=== PATIENT | female | born 1950 | race Caucasian/White ===

== ENCOUNTER 2020-11-03 02:54 | Emergency (ER) | payer MEDICARE, MEDICAID, SELFPAY ==
[2020-11-03] VITALS (17 sets, daily range): BP systolic 128–168; BP diastolic 58–86; PULSE 66–83; RESP 16–20; TEMP 36.6–36.7; O2SAT 96–100; BMI 21.4
--- NOTE | ~2020-11-03 | CT_ITS ---
EXAMINATION: CT HEAD WITHOUT CONTRAST CLINICAL INFORMATION: Dizziness COMPARISON: None TECHNIQUE: Contiguous axial imaging was performed from the skull base to vertex without intravenous administration of contrast. This CT examination was performed using dose optimization techniques as appropriate, variously including the following: *Automated exposure control *Adjustment of mA and/or kV according to patient size (this includes techniques or standardized protocols for targeted exams where dose is matched to indication/reason for exam; i.e. extremities or head) *Use of iterative reconstruction technique DLP: 569 mGy-cm FINDINGS: There is no evidence of an extra-axial collection. There is no evidence of intra-axial or extra-axial hemorrhage. Ventricles and extra-axial CSF spaces are appropriate for age. There is mild nonspecific periventricular white matter disease. There is question of a left basal ganglia lacunar infarct. No mass, mass effect or acute infarct is seen. The osseous structures and soft tissues are normal. There is a small polyp or cyst in the right maxillary sinus. The mastoid air cells and visualized portions of the paranasal sinuses are otherwise clear. CT/CT head/brain wo con IMPRESSION: No acute findings. Mild nonspecific periventricular white matter disease and question left basal ganglia lacunar infarct.
--- NOTE | ~2020-11-03 | MR_ITS ---
EXAMINATION: BRAIN MRI WITHOUT CONTRAST CLINICAL INFORMATION: Vertigo and dizziness. Posterior circulation stroke. COMPARISON: CT angiogram of the head and neck 11/03/2020. TECHNIQUE: Multiplanar MR imaging of the brain was performed without contrast. FINDINGS: Scattered nonspecific foci of T2 FLAIR signal hyperintensity are visualized within the periventricular white matter. No acute territorial infarct. No pathological magnetic susceptibility artifact. Intracranial vascular flow voids are maintained. There is no intracranial mass effect or midline shift. Lateral and third ventricles are normal. No hydrocephalus. Midline structures including the cervicomedullary junction are normal. No acute bone marrow signal changes. There is no mastoid middle ear effusion. Mild mucosal thickening within ethmoid air cells. A small retention cysts within the right maxillary sinus is noted. Globes and orbits are symmetric. MR/MR head/brain wo con IMPRESSION: There are scattered chronic small vessel ischemic changes within the periventricular white matter. Otherwise unremarkable examination. No evidence of acute territorial infarct or hemorrhage.
--- NOTE | ~2020-11-03 | CT_ITS ---
EXAMINATION: CT angio head neck CLINICAL INFORMATION: Dizziness. Unable to walk. COMPARISON: CT scan of the head 11/03/2020. TECHNIQUE: Inventory Administrator images were obtained. A CT angiogram of the head and neck was performed in the arterial phase after the intravenous administration of 70 mL Omnipaque 350. Delayed postcontrast images of the head were also obtained. MIP reconstructions were generated in multiple orientations at the acquisition workstation. Multiple three-dimensional surface rendered images and maximum intensity projection images were generated on a dedicated 3-D lab workstation. Arterial stenoses are measured in accordance with NASCET criteria or similar method if applicable. This CT examination was performed using dose optimization techniques as appropriate, including one or more of the following: Automated exposure control, iterative reconstruction, and adjustment of technique factors (mA and/or kVp) according to patient size (this includes techniques or standardized protocols for targeted exams where dose is matched to indication/reason for exam). Total exam dose-length product 1386 mGy-cm FINDINGS: Head: Postcontrast images reveal no abnormal intracranial mass or enhancement. There is no intracranial mass effect or midline shift. Lateral and third ventricles are normal. No hydrocephalus. Vance-white matter differentiation is preserved and there is no evidence of acute territorial infarct. The calvarium and skull base are intact. Mastoid air cells and middle ear cavities are well aerated. No active paranasal sinus disease. CT angiogram neck: The aortic arch apex is normal. Origins of the major aortic branches are widely patent. Common carotid arteries and the carotid bifurcations are patent. No stenosis of the extracranial internal carotid arteries. The cervical segments of the vertebral arteries as well as their origins are patent. CT angiogram head: Intracranial internal carotid arteries are patent. The intradural vertebral artery segments and basilar artery are patent. Anterior, middle, and posterior cerebral artery complexes are normal. No intracranial large vessel occlusion. The timing of contrast injection provides adequate opacification of the dural venous sinuses which are patent. Other: Soft tissues of the neck including the thyroid gland are normal. Visualized lung apices are clear. CT/CT angio head neck IMPRESSION: Unremarkable CT angiogram of the head and neck. Specifically no stenosis of the cervical carotid or vertebral arteries. No intracranial or vessel occlusion. Postcontrast images reveal no abnormal intracranial mass or enhancement.
--- NOTE | 2020-11-03 03:13 | ECG_ITS ---
Test Reason : DIZZINESS Blood Pressure : / mmHG Vent. Rate : 064 BPM Atrial Rate : 064 BPM P-R Int : 138 ms QRS Dur : 082 ms QT Int : 438 ms P-R-T Axes : 060 023 -10 degrees QTc Int : 451 ms Normal sinus rhythm ST & T wave abnormality, consider anterior ischemia Abnormal ECG When compared with ECG of 01-OCT-2014 07:46, No significant change was found Referred By: Tia Cooney Electronically Signed By:JUANITA HILL
[2020-11-03 03:53] LABS: Basophils Percent Auto 0.3 % (0-2); Eosinophils Percent Auto 0.3 % (0-4); Hematocrit 36.4 % (37-47); Hemoglobin 11.8 g/dl (12.0-16.0); Imm Gran Abs Auto 0.03 X10*3/uL (0.00-0.03); Imm Gran Pct Auto 0.3 % (0.0-0.4); Lymphocytes Absolute Auto 2.4 X10*3/uL (1.2-4.9); Lymphocytes Percent Auto 24.3 % (20-40); MANUAL DIFF FLAG NO; Mean Corpuscular HGB Conc 32.4 g/dl (31.0-35.0); Mean Corpuscular Hemoglobin 27.9 pg (27.0-33.0); Mean Corpuscular Volume 86.1 fL (80-98); Mean Platelet Volume 8.5 fL (9.4-12.3); Monocytes Absolute Auto 0.3 X10*3/uL (0.1-1.2); Monocytes Percent Auto 3.3 % (2-11); Neutrophils Percent Auto 71.5 % (45-73); Platelet Count 241 X10*3/uL (160-400); Red Blood Count 4.23 X10*6/uL (4.20-5.50); Red Cell Distribution Width 13.7 % (11.0-16.0); White Blood Count 9.8 X10*3/uL (4.8-10.8)
[2020-11-03 04:02] LABS: Prothrombin Time 11.5 SEC (10.8-13.0)
--- NOTE | 2020-11-03 04:17 | ED_ITS ---
HPI - Dizziness General Chief Complaint: Dizziness Stated Complaint: Dizziness Time Seen by Provider: 11/03/20 03:12 Source: patient Mode of arrival: EMS History of Present Illness HPI Narrative: 70-year-old female with history of depression presents with onset of mild dizziness earlier yesterday morning, however she still decided to go to the beach because she began to feel better. She then states that this evening she began feeling dizzy and states that change of position makes it worse and that she feels like the room is spinning. This is not been associated with any fever, chills, headache, cough, shortness breath/chest pain/palpitations, nausea, diarrhea, urinary pain/burning/frequency. Patient states that she has had this symptom before when she was much younger. Related Data Previous Rx's Medication Instructions Recorded cephalexin 500 mg PO Q12H 7 Days #14 cap 11/03/20 Allergies Allergy/AdvReac Type Severity Reaction Status Date / Time No Known Allergies Allergy Unverified 11/03/20 03:11 [No Known Allergies*] Review of Systems Review of Systems: Pertinent positives and negatives as stated in HPI 10 point review of systems is otherwise negative. PMFSH Past Medical History Source: nursing notes reviewed Medical History Hyperlipemia Hypertension Vertigo Social History Social History Advance Directives: No Advance Directives Information Provided: No Physical Exam Vital Signs: Vital Signs: Last Vital Signs Temp 97.8 F 11/03/20 03:05 Pulse 82 11/03/20 04:28 Resp 16 11/03/20 03:05 BP 149/58 H 11/03/20 04:28 Pulse Ox 98 11/03/20 03:05 Body Mass Index 21.4 VITAL SIGNS: Reviewed. GENERAL: Well developed, well nourished, in no acute distress. HEAD: Normocephalic/atraumatic EYES: PERRLA, EOMI OROPHARYNX: no oral lesions noted, posterior pharynx clear, dry mucosa NECK: Supple, no adenopathy LUNGS: Normal breath sounds. No adventitious sounds or accessory muscle use. SpO2<98> CARDIOVASCULAR: Regular rate and rhythm without noted murmurs, no JVD or lower extremity edema. ABDOMEN: Soft, non-tender, non-distended with bowel sounds. SKIN: Inspection of the skin reveals no rashes, but there is noted erythema to the right side of her neck as well as her forehead consistent with sun exposure NEUROLOGIC: Alert and oriented x 4. Strength and sensation to light touch were grossly intact x 4, no pronator drift, no facial asymmetry, cranial nerves 2-12 are grossly intact. Course Course Course Narrative: 70-year-old female with history and clinical presentation consistent with vertigo suspect that this may be secondary to volume depletion after having spent the day in the sun with likely poor hydration. However, will rule out underlying infectious, anemia, arrhythmia etiologies. 0428: Orthostatics are positive. On review of remaining investigations patient is noted to have a UTI and was treated with initial antibiotics here in the emergency room. She will be discharged with remaining prescription. MDM - Dizziness Lab Data Result diagrams: 11/03/20 03:48 11/03/20 03:48 Labs: Lab Results 11/03/20 11/03/20 11/03/20 Range/Units 03:48 03:48 03:48 WBC 9.8 (4.8-10.8) X10*3/uL RBC 4.23 (4.20-5.50) X10*6/uL Hgb 11.8 L (12.0-16.0) g/dl Hct 36.4 L (37-47) % MCV 86.1 (80-98) fL MCH 27.9 (27.0-33.0) pg MCHC 32.4 (31.0-35.0) g/dl RDW 13.7 (11.0-16.0) % Plt Count 241 (160-400) X10*3/uL MPV 8.5 L (9.4-12.3) fL Immature Gran % (Auto) 0.3 (0.0-0.4) % Neut % (Auto) 71.5 (45-73) % Lymph % (Auto) 24.3 (20-40) % [place] % (Auto) 3.3 (2-11) % Eos % (Auto) 0.3 (0-4) % Baso % (Auto) 0.3 (0-2) % Lymph # (Auto) 2.4 (1.2-4.9) X10*3/uL [place] # (Auto) 0.3 (0.1-1.2) X10*3/uL Eos # (Auto) 0.0 (0.0-0.4) X10*3/uL Baso # (Auto) 0.0 (0.0-0.2) X10*3/uL Abs Immat Gran (auto) 0.03 (0.00-0.03) X10*3/uL Absolute Neuts (auto) 7.0 (2.0-8.3) X10*3/uL Absolute Nucleated RBC 0.000 (0.0-0.012) X10*3/uL Nucleated RBC % (auto) 0.0 (0.0-0.2) /100WBC PT 11.5 (10.8-13.0) SEC INR 1.0 (0.9-1.1) Sodium 144 (135-145) mmol/L Potassium 4.2 (3.3-5.1) mmol/L Chloride 108 (96-108) mmol/L Carbon Dioxide 26 (22-29) mmol/L Anion Gap 14 (12-20) BUN 16 (9-16) mg/dL Creatinine 0.54 (0.5-1.4) mg/dL Estim Creat Clear Calc 82.5 Estimated GFR > 60 Random Glucose 134 H (60-115) mg/dL Calcium 9.2 (8.4-10.2) mg/dL Total Bilirubin 0.4 (0.0-1.0) mg/dL AST 21 (5-31) U/L ALT 16 (0-31) U/L Alkaline Phosphatase 99 (39-117) U/L Troponin I High Sens (<3.5-17.0) ng/L Total Protein 6.9 (6.5-8.0) g/dL Albumin 4.3 (3.5-5.0) g/dL Urine Color Urine Appearance Urine pH (5.0-8.0) Ur Specific [place] (1.005-1.025) Urine Protein (NEG-TRACE) MG/DL Urine Glucose (UA) (NEG) MG/DL Urine Ketones (NEG) MG/DL Urine Blood (NEG) Urine Nitrite (NEG) Ur Leukocyte Esterase (NEG) Urine RBC (0) /HPF Urine WBC (0-4) /HPF Ur Squamous Epith Cells /LPF Urine Bacteria /LPF Urine Mucus /LPF 11/03/20 11/03/20 Range/Units 03:48 05:44 WBC (4.8-10.8) X10*3/uL RBC (4.20-5.50) X10*6/uL Hgb (12.0-16.0) g/dl Hct (37-47) % MCV (80-98) fL MCH (27.0-33.0) pg MCHC (31.0-35.0) g/dl RDW (11.0-16.0) % Plt Count (160-400) X10*3/uL MPV (9.4-12.3) fL Immature Gran % (Auto) (0.0-0.4) % Neut % (Auto) (45-73) % Lymph % (Auto) (20-40) % [place] % (Auto) (2-11) % Eos % (Auto) (0-4) % Baso % (Auto) (0-2) % Lymph # (Auto) (1.2-4.9) X10*3/uL [place] # (Auto) (0.1-1.2) X10*3/uL Eos # (Auto) (0.0-0.4) X10*3/uL Baso # (Auto) (0.0-0.2) X10*3/uL Abs Immat Gran (auto) (0.00-0.03) X10*3/uL Absolute Neuts (auto) (2.0-8.3) X10*3/uL Absolute Nucleated RBC (0.0-0.012) X10*3/uL Nucleated RBC % (auto) (0.0-0.2) /100WBC PT (10.8-13.0) SEC INR (0.9-1.1) Sodium (135-145) mmol/L Potassium (3.3-5.1) mmol/L Chloride (96-108) mmol/L Carbon Dioxide (22-29) mmol/L Anion Gap (12-20) BUN (9-16) mg/dL Creatinine (0.5-1.4) mg/dL Estim Creat Clear Calc Estimated GFR Random Glucose (60-115) mg/dL Calcium (8.4-10.2) mg/dL Total Bilirubin (0.0-1.0) mg/dL AST (5-31) U/L ALT (0-31) U/L Alkaline Phosphatase (39-117) U/L Troponin I High Sens < 3.5 (<3.5-17.0) ng/L Total Protein (6.5-8.0) g/dL Albumin (3.5-5.0) g/dL Urine Color STRAW Urine Appearance CLEAR Urine pH 6.0 (5.0-8.0) Ur Specific [place] <= 1.005 (1.005-1.025) Urine Protein NEG (NEG-TRACE) MG/DL Urine Glucose (UA) NEG (NEG) MG/DL Urine Ketones NEG (NEG) MG/DL Urine Blood TRACE (NEG) Urine Nitrite NEG (NEG) Ur Leukocyte Esterase TRACE H (NEG) Urine RBC 0-2 (0) /HPF Urine WBC 0-2 (0-4) /HPF Ur Squamous Epith Cells TRACE /LPF Urine Bacteria TRACE /LPF Urine Mucus TRACE /LPF ECG Data Attestation: I personally reviewed and interpreted this ECG as follows: Prior ECG tracings: available for review (10/01/2014 no acute changes on comparison (T-wave inversions of V2/V3/V4 are consistent)) Interpretation: Normal sinus rhythm, HR-64, no evidence of acute ischemia, DE/QRS/QTC are within normal limits. Discharge Plan Discharge Clinical Impression: Dizziness, Acute UTI, Dehydration Patient Disposition: Home, Self-Care Instructions: Dehydration (ED), Dizziness (ED), Urinary Tract Infection in Older Adults (ED) Additional Instructions: 1. Resume all home medications as prescribed. 2. Increase fluid hydration especially with water. 3. Complete the entire course of antibiotics and follow-up with your primary care provider in the next 2-3 days for re-evaluation. Return to the ER for any worsening of your symptoms. Prescriptions: New cephalexin 500 mg capsule 500 mg PO Q12H 7 Days Qty: 14 RF: 0 Referrals: Physician,Unknown [Primary Care Provider] - 2 days
[2020-11-03 04:18] LABS: Alanine Aminotransferase 16 U/L (0-31); Albumin Level 4.3 g/dL (3.5-5.0); Alkaline Phosphatase 99 U/L (39-117); Anion Gap 14 (12-20); Aspartate Amino Transferase 21 U/L (5-31); Bilirubin Total 0.4 mg/dL (0.0-1.0); Blood Urea Nitrogen 16 mg/dL (9-16); Calcium 9.2 mg/dL (8.4-10.2); Carbon Dioxide 26 mmol/L (22-29); Chloride 108 mmol/L (96-108); Creatinine Clr Calc Pharmacy 82.5; Estimated Glomerular Filt Rate > 60; Glucose Random 134 mg/dL (60-115); Potassium 4.2 mmol/L (3.3-5.1); Sodium 144 mmol/L (135-145); Total Protein 6.9 g/dL (6.5-8.0)
[2020-11-03 04:42] LABS: Troponin-I High Sensitivity < 3.5 ng/L (<3.5-17.0)
[2020-11-03] MEDS: Meclizine HCl 12.5 MG TABLET PO (04:49)
[2020-11-03] MEDS: 0.9 % Sodium Chloride 2,000 ML 999 ML IV (04:52)
[2020-11-03 06:00] LABS: Glucose Urine UA NEG (NEG); Leukocyte Esterase Urine TRACE (NEG); Nitrite Urine NEG (NEG); Specific Gravity - Urine <= 1.005 (1.005-1.025); UACC Culture Trigger YES; Urine Blood TRACE (NEG); Urine Ketones NEG (NEG); Urine Protein NEG (NEG-TRACE)
[2020-11-03 06:01] LABS: Appearance Urine CLEAR; Color Urine STRAW
[2020-11-03 06:28] LABS: Bacteria Urine TRACE /LPF; Mucus Urine TRACE /LPF; RBC Urine 0-2 /HPF (0); Squamous Epithelial Cell Urine TRACE /LPF; WBC Urine 0-2 /HPF (0-4)
[2020-11-03] MEDS: cefTRIAXone sodium 1 GM in 0.9 % Sodium Chloride 50 ML IV (06:30)
--- NOTE | 2020-11-03 06:54 | PC.NURSE ---
pt medicated as per emar. pt attempted to get oob and still is dizzy and refusing to stand up. VS obtained. Report given to on coming nurse.
--- NOTE | 2020-11-03 07:19 | PC.NURSE ---
report taken from Brook MORA. pt in bed resting quietly. Denies pain at this time, reports the dizziness is getting better.
--- NOTE | 2020-11-03 07:28 | PC.NURSE ---
Per MD plan is for pt to have CT scan of brain.
[2020-11-03] MEDS: Meclizine HCl 25 MG TABLET PO (07:39)
--- NOTE | 2020-11-03 08:09 | PC.NURSE ---
Pt ambulated to and back from the bathroom with 2 assist contact guard, pt with occasional unsteadiness noted.
[2020-11-03] MEDS: LORazepam 0.5 MG TABLET PO (08:46)
--- NOTE | 2020-11-03 10:16 | PC.NURSE ---
pt continues to have some dizziness post medication , remains unsteady on her feet.
--- NOTE | 2020-11-03 10:45 | PC.NURSE ---
Pt transferred to cat scan via stretcher for CTA.
[2020-11-03] MEDS: iohexoL 350 MG/ML 100 ML INFUS..BTL IV (11:13)
[2020-11-03 11:30] LABS: COVID-19 Test Negative (Negative); IDNOW Serial# 9DD0AD1C
--- NOTE | 2020-11-03 11:57 | PC.NURSE ---
Pt assisted up to commode, remains unsteady on her feet.
--- NOTE | 2020-11-03 15:33 | MHC.CM.ED ---
Addendum entered by Jessy Ha 11/03/20 16:07: Pt has been offered a bed at [facility] and has accepted. [facility] will have availability on 11/04. ED MD and RN aware: pt understands she will board in the ED until Thursday and then transfer to [facility]. Pt concerned with arranging care givers for her dog - using cellphone to coordinate care. Original Note: Received consult for assessment of d/c needs: Pt presented to ED with vertigo and after a negative workup, had a PT eval that recommended STR. Met with pt to discuss: Pt states she lives with her dog and is independent with care needs. She does have Meals on Wheels through [employer] but does not use adaptive devices or have additional services. She relies on family or friends for transportation. Pt would like to stay in the [place] area at this time for STR - geographical referrals placed: Pt had COVID Vax this spring. Will await accepting facility.
[2020-11-03] MEDS: Atorvastatin Calcium 40 MG TABLET PO (16:39)
[2020-11-03] MEDS: Sertraline HCL 100 MG TABLET PO (16:39)
--- NOTE | 2020-11-03 16:47 | PC.NURSE ---
PT AGREEABLE TO GO TO [facility] FOR REHAB. PT AWARE OF PLAN FOR TRANSFER TOMORROW WHEN BED IS AVAILABLE. PT RESTING IN BED, FAMILY AT BEDSIDE. CONTINUES TO REPORT IMPROVEMENT IN DIZIINESS.
[2020-11-03] MEDS: timoloL maleate 0.5 % Oph Sol 5 ML DRBTL 1 DROP EYE-BOTH (17:28)
--- NOTE | 2020-11-03 19:43 | PC.NURSE ---
Report taken from Melva, percy RN resuming care. Pt found ambulating around room with a steady gait. Pt is CAOx4, speaking full sentences. Pt reports feeling better than last night, states most of her dizziness has subsided. Pt aware of plan to [facility] to [facility] for rehab in the morning. VSS. Pt assisted back into bed into POC. Continue to monitor.
--- NOTE | 2020-11-03 20:49 | PC.NURSE ---
Daughter at bedside inquiring about results and plan of care. Pt requesting PO Tylenol, states I always take Tylenol before bed.
[2020-11-03] MEDS: Acetaminophen 325 MG TABLET 650 MG PO (20:53)
[2020-11-04] VITALS: RESP 16
[2020-11-04 02:00] VITALS: RESP 20
[2020-11-04 04:00] VITALS: RESP 16
[2020-11-04 06:00] VITALS: RESP 16
--- NOTE | 2020-11-04 06:08 | PC.NURSE ---
Pt remains asleep in bed at this time, visible chest rise noted. Pt sleeping throughout the night, aware of plan for dispo to STR this morning. This RN calling pharmacy regarding 0600 Alendronate as it is not stocked in the pyxis. Pharm to bring to ED. Plan for 0600 medications once able and to update VS.
[2020-11-04 07:16] VITALS: BP 131/72; PULSE 79; RESP 16; O2SAT 97
--- NOTE | 2020-11-04 07:17 | PC.NURSE ---
Pt alert and awake, reports ambulating to bathroom steady without dizziness states feeling good and now wants to go home. refused Fosamax reporting I hate that pill, I usually take it Saturdays but I didnt take it yesterday but I already ate crackers, forget that pill Neuros are intake, speech is clear. Skin pwd. Breakfast given. Vitals stable as charted.
--- NOTE | 2020-11-04 08:39 | PC.NURSE ---
Case Management at bedside discussing discharge plan as pt request to go home after improvement of sx
--- NOTE | 2020-11-04 08:40 | MHC.CM.ED ---
Discussion with pt's RN: pt is now able to ambulate with supervision for safety: no gait impairment noted. Pt herself states she feels markedly improved with a cessation of vertigo. Pt is requesting to return to home at this time without services. She states she will call friend/family for transportation. Referrals cancelled: pt instructed to contact PCP for f/u visit and for any issues once home.
[2020-11-04] MEDS: Sertraline HCL 100 MG TABLET PO (09:40)
[2020-11-04] MEDS: Atorvastatin Calcium 40 MG TABLET PO (09:40)
[2020-11-04] MEDS: timoloL maleate 0.5 % Oph Sol 5 ML DRBTL 1 DROP EYE-BOTH (09:41)
== END 2020-11-04 10:11 | disposition skilled nursing facility (03) ==
PROVIDERS: Emergency Medicine; Emergency Provider Student in an Organized Health Care Education/Training Program
DX: E86.0 Dehydration (principal); N39.0 Urinary tract infection, site not specified; R26.2 Difficulty in walking, not elsewhere classified; I10 Essential (primary) hypertension; Z20.822 Contact with and (suspected) exposure to COVID-19
CPT/HCPCS: 36415; 70450; 70496; 70498; 70551; 80053; 81001; 81003; 84484; 85025; 85610; 87086; 87635; 93005; 96361; 96365; 97162; 99285; J0696; Q9967

== ENCOUNTER 2021-01-17 10:09 | Outpatient (REF) | payer MEDICARE, MEDICAID, SELFPAY ==
--- NOTE | ~2021-01-17 | MM_ITS ---
EXAMINATION: MM SCREENING DIGITAL BREAST TOMOSYNTHESIS, BILATERAL CLINICAL INFORMATION: Screening. Asymptomatic. The lifetime risk of breast cancer based on the Tyrer-Cuzick Model is 2%. COMPARISON: Mammography: 01/12/2020, 01/06/2019, 08/04/2016;, targeted left breast ultrasound 01/11/2019. TECHNIQUE: Digital breast tomosynthesis is performed in both the craniocaudal and mediolateral oblique views along with computer-aided detection (CAD). Synthesized 2D images are generated from the tomosynthesis. FINDINGS: There are scattered areas of fibroglandular density (ACR BI-RADS breast composition Category b). There are no significant masses, abnormal calcifications, or other abnormalities. Parenchymal pattern is similar to prior exams. The tiny cyst anterior medial left breast is stable. There are fine vascular calcifications. The axilla and skin contours are unremarkable. MM/MM tomosynthesis screening BI IMPRESSION: No mammographic evidence of malignancy. ASSESSMENT: BI-RADS 2: Benign RECOMMENDATION: Routine annual mammography screening. This patient's information was entered into a reminder system with a target due date for their next mammogram.
== END 2021-01-17 10:10 | disposition home or self-care (01) ==
LOC: HO.MAMMO 10:09
PROVIDERS: PCP Internal Medicine; Visit Provider Internal Medicine
DX: Z12.31 Encounter for screening mammogram for malignant neoplasm of breast (principal)
CPT/HCPCS: 77063; 77067

== ENCOUNTER 2021-08-16 12:33 | Outpatient (REF) | payer MEDICARE, MEDICAID, SELFPAY ==
[2021-08-16 14:07] LABS: MANUAL DIFF FLAG NO
[2021-08-16 14:26] LABS: Basophils Percent Auto 0.3 % (0-2); Eosinophils Absolute Auto 0.1 X10*3/uL (0.0-0.4); Eosinophils Percent Auto 1.1 % (0-4); Hematocrit 40.7 % (37.0-47.0); Hemoglobin 12.6 g/dl (12.0-16.0); Imm Gran Abs Auto 0.03 X10*3/uL (0.00-0.03); Imm Gran Pct Auto 0.3 % (0.0-0.4); Mean Corpuscular Hemoglobin 27.5 pg (27.0-33.0); Mean Corpuscular Volume 88.7 fL (80.0-98.0); Mean Platelet Volume 8.3 fL (9.4-12.3); Monocytes Absolute Auto 0.6 X10*3/uL (0.1-1.2); Monocytes Percent Auto 5.5 % (2-11); Neutrophils Absolute Auto 5.3 x10*3/uL (2.0-8.3); Neutrophils Percent Auto 52.8 % (45-73); Platelet Count 332 X10*3/uL (160-400); Red Blood Count 4.59 X10*6/uL (4.20-5.50); Red Cell Distribution Width 13.3 % (11.0-16.0)
[2021-08-16 14:53] LABS: Alanine Aminotransferase 19 U/L (0-31); Albumin Level 4.7 g/dL (3.5-5.0); Alkaline Phosphatase 113 U/L (39-117); Anion Gap 15 (12-20); Aspartate Amino Transferase 15 U/L (5-31); Bilirubin Total 0.3 mg/dL (0.0-1.0); Blood Urea Nitrogen 17 mg/dL (9-16); Calcium 10.3 mg/dL (8.4-10.2); Carbon Dioxide 29 mmol/L (22-29); Chloride 104 mmol/L (96-108); Estimated Glomerular Filt Rate > 60; Glucose Random 93 mg/dL (60-115); Potassium 4.5 mmol/L (3.3-5.1); Sodium 143 mmol/L (135-145); Total Protein 7.8 g/dL (6.5-8.0)
== END 2021-08-16 12:34 | disposition home or self-care (01) ==
LOC: HO.LAB 12:33
PROVIDERS: PCP Internal Medicine; Referring Provider Internal Medicine; Visit Provider Nurse Practitioner
DX: Z01.818 Encounter for other preprocedural examination (principal)
CPT/HCPCS: 36415; 80053; 85025; 99202

== ENCOUNTER 2022-01-23 12:29 | Outpatient (REF) | payer MEDICARE, MEDICAID, SELFPAY ==
--- NOTE | ~2022-01-23 | MM_ITS ---
EXAMINATION: MM SCREENING DIGITAL BREAST TOMOSYNTHESIS, BILATERAL CLINICAL INFORMATION: Screening. Asymptomatic. The lifetime risk of breast cancer based on the Tyrer-Cuzick Model is 2%. COMPARISON: Mammography: 02/04/2021, 01/12/2020, 01/06/2019, left breast ultrasound 01/11/2019 TECHNIQUE: Digital breast tomosynthesis is performed in both the craniocaudal and mediolateral oblique views along with computer-aided detection (CAD). Synthesized 2D images are generated from the tomosynthesis. FINDINGS: There are scattered areas of fibroglandular density (ACR BI-RADS breast composition Category b). There are no significant masses, abnormal calcifications, or other abnormalities. Parenchymal pattern is similar to prior studies. There is no developing density or architectural abnormality. Again, there is incidental circumscribed oil cyst retroareolar right breast and a tiny stable cyst anterior lower left breast. The axilla and skin contours are unremarkable. No significant changes. MM/MM tomosynthesis screening BI IMPRESSION: No mammographic evidence of malignancy. ASSESSMENT: BI-RADS 2: Benign RECOMMENDATION: Routine annual mammography screening. This patient's information was entered into a reminder system with a target due date for their next mammogram.
== END 2022-01-23 12:30 | disposition home or self-care (01) ==
LOC: HO.MAMMO 12:29
PROVIDERS: PCP Internal Medicine; Visit Provider Internal Medicine
DX: Z12.31 Encounter for screening mammogram for malignant neoplasm of breast (principal)
CPT/HCPCS: 77063; 77067

== ENCOUNTER 2023-04-14 14:19 | Outpatient (REF) | payer MEDICARE, MEDICAID, SELFPAY | END 2023-04-14 14:20 | disposition home or self-care (01) | LOC: HO.MAMMO 14:19 | PROVIDERS: PCP Internal Medicine; Visit Provider Internal Medicine | DX: Z12.31 Encounter for screening mammogram for malignant neoplasm of breast (principal) | CPT/HCPCS: 77063; 77067 ==

== ENCOUNTER → 2023-04-14 15:00 | Outpatient (BNV) | payer MEDICARE, MEDICAID, SELFPAY | PROVIDERS: PCP Internal Medicine; Visit Provider Radiology Diagnostic Radiology | DX: Z12.31 Encounter for screening mammogram for malignant neoplasm of breast (principal) | CPT/HCPCS: 77063; 77067 ==

== ENCOUNTER 2023-05-21 09:37 | Outpatient (REF) | payer MEDICARE, MEDICAID, SELFPAY ==
[2023-05-21 11:28] LABS: MANUAL DIFF FLAG NO
[2023-05-21 11:32] LABS: Basophils Percent Auto 0.3 % (0-2); Eosinophils Absolute Auto 0.1 X10*3/uL (0.0-0.4); Eosinophils Percent Auto 1.3 % (0-4); Hematocrit 43.7 % (37.0-47.0); Hemoglobin 13.4 g/dl (12.0-16.0); Imm Gran Abs Auto 0.02 X10*3/uL (0.00-0.03); Imm Gran Pct Auto 0.3 % (0.0-0.4); Lymphocytes Absolute Auto 2.5 X10*3/uL (1.2-4.9); Lymphocytes Percent Auto 32.9 % (20-40); Mean Corpuscular HGB Conc 30.7 g/dl (31.0-35.0); Mean Corpuscular Volume 88.1 fL (80.0-98.0); Mean Platelet Volume 8.7 fL (9.4-12.3); Monocytes Absolute Auto 0.4 X10*3/uL (0.1-1.2); Monocytes Percent Auto 5.3 % (2-11); Neutrophils Absolute Auto 4.5 x10*3/uL (2.0-8.3); Neutrophils Percent Auto 59.9 % (45-73); Platelet Count 322 X10*3/uL (160-400); Red Blood Count 4.96 X10*6/uL (4.20-5.50); Red Cell Distribution Width 13.7 % (11.0-16.0); White Blood Count 7.6 X10*3/uL (4.8-10.8)
[2023-05-21 11:50] LABS: Anion Gap 15 (12-20); Blood Urea Nitrogen 14 mg/dL (9-16); Calcium 9.8 mg/dL (8.4-10.2); Carbon Dioxide 27 mmol/L (22-29); Chloride 105 mmol/L (96-108); Cholesterol 318 mg/dL (<200); Estimated Glomerular Filt Rate > 60; Glucose Random 105 mg/dL (60-115); HDL Cholesterol 51 mg/dL (>40); LDL Cholesterol Calculated 202 mg/dL (<100); Potassium 5.4 mmol/L (3.3-5.1); Sodium 142 mmol/L (135-145); Triglycerides 328 mg/dL (<150)
== END 2023-05-21 09:38 | disposition home or self-care (01) ==
LOC: HO.HHCL 09:37
PROVIDERS: Visit Provider Internal Medicine
DX: Z00.00 Encounter for general adult medical examination without abnormal findings (principal); E78.00 Pure hypercholesterolemia, unspecified
CPT/HCPCS: 36415; 80048; 80061; 84443; 85025

== ENCOUNTER 2023-07-09 14:04 | Outpatient (REF) | payer MEDICARE, SELFPAY ==
--- NOTE | ~2023-07-09 | MM_ITS ---
EXAMINATION: BONE DENSITOMETRY CLINICAL INDICATION: Post menopausal. COMPARISON: Previous BD dated 01/06/2019 and baseline BD dated 11/20/2016. TECHNIQUE: Using a [employer] DXA System (software version: 13.1) manufactured by [employer], dual-energy x-ray absorptiometry was performed of the lumbar spine and left hip. The images are of good technical quality. Summary results are attached. FINDINGS: AP SPINE L1-L4: Current: BMD 0.813 g/cm2, Z-score -1.1, T-score -3.1, osteoporosis, 8.1% decrease from previous, 3.8% decrease from baseline (<5% change is not significant). Prior: BMD 0.885 g/cm2. Baseline: BMD 0.845 g/cm2. LEFT FEMUR, NECK: Current: BMD 0.696 g/cm2, Z-score -0.4, T-score -2.5, osteoporosis. Prior: BMD 0.706 g/cm2. Baseline: BMD 0.687 g/cm2. LEFT FEMUR, TOTAL: Current: BMD 0.649 g/cm2, Z-score -1.0, T-score -2.8, osteoporosis, 5.9% decrease from previous, 1.5% decrease from baseline (<5% change is not significant). Prior: BMD 0.690 g/cm2. Baseline: BMD 0.659 g/cm2. IDENTIFIED RISK FACTORS: Osteoporosis. Recurrent falls. Height loss. Low body weight. Low calcium intake. Menopause. HISTORY OF FRACTURE: None listed. MEDICATIONS: Calcium supplement and/or multivitamin. Vitamin D. MM/XR DEXA axial skeleton IMPRESSION: 1. DIAGNOSIS: Osteoporosis based on the lowest T-score value of -3.1 in the lumbar spine applying World Health Organization criteria. 2. 10-YEAR FRACTURE RISK PREDICTION, FRAX: According to the guidelines, FRAX calculation should only be performed on patients in the osteopenia bone density category.?Therefore, FRAX was not performed on this patient.? 3. Treatment Recommendations: NOF guidelines recommend consideration for treatment in postmenopausal women and men age 50 and older presenting with the following: -A hip or vertebral (clinical or morphometric) fracture. -T-score less than or equal to -2.5 at the femoral neck or spine after appropriate evaluation to exclude secondary causes. -Low bone mass at the hip or spine and a 10-year fracture probability by FRAX of greater than or equal to 3% for hip fracture or greater than or equal to 20% for major osteoporotic fracture based on the [place] adapted WHO algorithm. 4. Other Recommendations: All treatment decisions require clinical judgment and consideration of individual patient factors, including patient preferences, comorbidities, previous drug use, risk factors not captured in the FRAX model (e.g. frailty, falls, vitamin D deficiency, increased bone turnover, interval significant decline in bone density) and possible under or overestimation of fracture risk by FRAX. Additional medical evaluation for secondary cause of low bone mineral density may be appropriate. FUTURE SCAN RECOMMENDATION: People with diagnosed cases of osteoporosis or at high risk for fracture should have regular bone mineral density tests. For patients eligible for Medicare, routine testing is allowed once every 2 years. The testing frequency can be increased to one year for patients who have rapidly progressing disease, those who are receiving or discontinuing medical therapy to restore bone mass, or have additional risk factors.
== END 2023-07-09 14:05 | disposition home or self-care (01) ==
LOC: HO.MAMMO 14:04
PROVIDERS: PCP Internal Medicine; Visit Provider Internal Medicine
DX: Z13.820 Encounter for screening for osteoporosis (principal); Z78.0 Asymptomatic menopausal state
CPT/HCPCS: 77080

== ENCOUNTER 2023-07-14 09:13 | Outpatient (REF) | payer MEDICARE, SELFPAY ==
[2023-07-14 11:13] LABS: MANUAL DIFF FLAG NO
[2023-07-14 11:26] LABS: Basophils Percent Auto 0.5 % (0-2); Eosinophils Absolute Auto 0.1 X10*3/uL (0.0-0.4); Eosinophils Percent Auto 1.3 % (0-4); Hematocrit 40.9 % (37.0-47.0); Hemoglobin 12.9 g/dl (12.0-16.0); Imm Gran Abs Auto 0.04 X10*3/uL (0.00-0.03); Imm Gran Pct Auto 0.5 % (0.0-0.4); Lymphocytes Absolute Auto 3.1 X10*3/uL (1.2-4.9); Lymphocytes Percent Auto 39.5 % (20-40); Mean Corpuscular HGB Conc 31.5 g/dl (31.0-35.0); Mean Corpuscular Hemoglobin 27.4 pg (27.0-33.0); Mean Corpuscular Volume 86.8 fL (80.0-98.0); Mean Platelet Volume 8.9 fL (9.4-12.3); Monocytes Absolute Auto 0.3 X10*3/uL (0.1-1.2); Monocytes Percent Auto 4.3 % (2-11); Neutrophils Absolute Auto 4.3 x10*3/uL (2.0-8.3); Neutrophils Percent Auto 53.9 % (45-73); Platelet Count 306 X10*3/uL (160-400); Red Blood Count 4.71 X10*6/uL (4.20-5.50); Red Cell Distribution Width 13.5 % (11.0-16.0); White Blood Count 7.9 X10*3/uL (4.8-10.8)
[2023-07-14 12:07] LABS: Alanine Aminotransferase 14 U/L (0-31); Albumin Level 4.5 g/dL (3.5-5.0); Alkaline Phosphatase 84 U/L (39-117); Anion Gap 14 (12-20); Aspartate Amino Transferase 18 U/L (5-31); Bilirubin Total 0.3 mg/dL (0.0-1.0); Blood Urea Nitrogen 18 mg/dL (9-16); Calcium 9.9 mg/dL (8.4-10.2); Carbon Dioxide 28 mmol/L (22-29); Chloride 106 mmol/L (96-108); Cholesterol 197 mg/dL (<200); Estimated Glomerular Filt Rate > 60; Glucose Random 103 mg/dL (60-115); HDL Cholesterol 56 mg/dL (>40); LDL Cholesterol Calculated 111 mg/dL (<100); Potassium 4.5 mmol/L (3.3-5.1); Sodium 143 mmol/L (135-145); Total Protein 7.9 g/dL (6.5-8.0); Triglycerides 151 mg/dL (<150)
[2023-07-15 18:51] LABS: Leukocytes Stool Qualitative NEGATIVE (NEGATIVE)
[2023-07-16 09:06] LABS: Adenovirus F 40/41 Not Detected (Not Detect.); Astrovirus Not Detected (Not Detect.); Campylobacter Not Detected (Not Detect.); Cryptosporidium Not Detected (Not Detect.); Cyclospora cayetanensis Not Detected (Not Detect.); E. coli EAEC Not Detected (Not Detect.); E. coli EPEC Not Detected (Not Detect.); E. coli ETEC Not Detected (Not Detect.); E. coli STEC Not Detected (Not Detect.); Entamoeba histolytica Not Detected (Not Detect.); Giardia lamblia Not Detected (Not Detect.); Norovirus GI/GII Not Detected (Not Detect.); Plesiomonas shigelloides Not Detected (Not Detect.); Rotavirus A Not Detected (Not Detect.); Salmonella Not Detected (Not Detect.); Sapovirus Not Detected (Not Detect.); Shigella sp./EIEC Not Detected (Not Detect.); Vibrio Not Detected (Not Detect.); Vibrio Cholerae Not Detected (Not Detect.); Yersinia enterocolitica Not Detected (Not Detect.)
[2023-07-16 20:17] LABS: Gliadin Deamidated IgA Ab <1.0 U/mL; Gliadin Deamidated IgG Ab <1.0 U/mL; Immunoglobulin A 242 mg/dL (70-320); Transglutaminase Ab IgG <1.0 U/mL; Transglutaminase IgA <1.0 U/mL
== END 2023-07-14 09:14 | disposition home or self-care (01) ==
LOC: HO.HHCL 09:13
PROVIDERS: Visit Provider Internal Medicine
DX: R19.7 Diarrhea, unspecified (principal); E78.00 Pure hypercholesterolemia, unspecified
CPT/HCPCS: 36415; 80053; 80061; 82784; 85025; 86258; 86364; 87329; 87507; 89055

== ENCOUNTER 2024-07-08 09:36 | Outpatient (REF) | payer MEDICARE, SELFPAY ==
--- OUTSIDE RECORDS SUMMARY | 2024-07-08 10:10 | XMS_ITS | Clinical Summary ---
Author Organization [employer] Address [address] [facility] 7t [place] [address] Care Team Providers Care Orthodontist Assistant Name Role Phone Tal Parham MD Primary Care Provider [phone]- [phone] Allergies No known active allergies Medications sertraline (Zoloft) 100 MG tabletIndication s:Recurrent major depressive disorder, in partial remission (CMS/HCC) TAKE ONE TABLET BY MOUTH EVERY DAY 30 tablet 5 05/20/19 23 Active timolol (Timoptic) 0.5 % ophthalmic solution INSTILL 1 DROP IN BOTH EYES ONCE DAILY IN THE MORNING 06/20/19 23 Active Aspirin Low Dose 81 MG EC tabletIndication s:Essential hypertension TAKE ONE TABLET BY MOUTH EVERY DAY 90 tablet 3 07/22/19 23 Active atorvastatin (Lipitor) 40 MG tabletIndication s:Hypercholester olemia TAKE 1 TABLET BY MOUTH EVERY MORNING 100 tablet 3 10/26/19 24 Active alendronate (Fosamax) 70 MG tabletIndication s:Other osteoporosis without current pathological fracture TAKE 1 TABLET BY MOUTH WEEKLY WITH 8 OZ OF PLAIN WATER 30 MINUTES BEFORE FIRST FOOD, DRINK OR MEDS. STAY UPRIGHT FOR 30 MINS 12 tablet 3 01/19/20 24 Active latanoprost (Xalatan) 0.005 % ophthalmic solution 02/12/20 24 Active sertraline (Zoloft) 100 MG tablet TAKE 1 TABLET BY MOUTH IN THE MORNING 30 tablet 11 06/28/19 25 Active sertraline (Zoloft) 100 MG tablet TAKE 1 TABLET BY MOUTH IN THE MORNING 30 tablet 11 08/12/19 24 025 Discontinued Active Problems Problem Noted Date Diagnosed Date Major depressive disorder in partial remission 1 06/07/2023 Depression 04/07/2024 Glaucoma of both eyes 04/07/2024 Dental plaque on multiple teeth 03/08/2024 Missing teeth, acquired 03/08/2024 Crowded teeth 03/08/2024 Dental calculus 03/08/2024 Periodontal disease 03/08/2024 Open fracture of tooth 03/08/2024 Encounters Date Type Department Care Team Description 06/25/2024 Refill [facility] MEDIC[facility] [address] [place], [place] [phone] Tal Parham MD 04/18/2024 Telephone [facility] ADULT DENTAL [address] [place], [place] [phone] Alyse Cantor DDS 04/07/2024 2:00 PM EST Office Visit [facility] MED & PEDS [address] [place], [place] [phone] Tal Parham MD Other osteoporosis without current pathological fracture (Primary Dx); Hypercholesterolemia; Diarrhea, unspecified type; Slow transit constipation; Recurrent major depressive disorder, in partial remission (CMS/HCC); Impacted cerumen of right ear; Recurrent major depressive disorder, in partial remission (CMS/HCC); Other glaucoma of both eyes 04/07/2024 Travel from Last 3 Months Immunizations Name Administration Dates Next Due Influenza High-dose Quadrivalent Preservative Fr ee 02/27/2023 Influenza Quadrivalent Adjuvanted 02/06/2022 Influenza injectable quadriv alent IIV4 with preservative 01/28/2018 Influenza injectable quadrivalent preservative f ree 04/17/2021,01/30/2015 Influenza, High Dose Seasonal, Preservative Free 02/03/2018,02/05/2016 Influenza, IIV3, injectable 01/27/2013 Influenza, seasonal, injectable, preservative fr ee 01/23/2015 Moderna Covid-19 Vaccine 12+ 10/03/2021 Pfizer Covid-19 Vaccine 12+ 02/27/2023 Pfizer Covid-19 Vaccine 12+ nara-sucrose (Vance C ap) 04/02/2021 Social History Tobacco Use Types Packs/Day Years Used Date Smoking Tobacco: Never Passive Smoke Exposure: Never Smokeless Tobacco: Never Tobacco Cessation:Counseling Given: Not Answered Alcohol Use Standard Drinks/Week Comments Never 0 (1 standard drink = 0.6 oz pur e alcohol) Depression Answer Date Recorded Patient Health Questionnaire-9 Score 18 04/07/2024 Patient Health Questionnaire-9 Score 18 04/07/2024 Last PHQ-9: Questionnaire Data Not on file 1 06/07/2023 Housing Stability Answer Date Recorded What is your housing situation today? I have haile simpson 03/13/[address] you li ve. Do you have problems with any of the following? None of the above 03/13/2023 Food Insecurity Answer Date Recorded Within the past 12 months, y ou worried that your food would run out before you got money to buy more: Never True 03/13/2023 Within the past 12 months,th e food you bought just didn't last and you didn't have enough money to get more: Never True Transportation Answer Date Recorded In the past 12 months, has l ack of transportation kept you from medical appts, meetings, work or from getting things needed for daily living? Yes, it has kept me from medical appointments or getting medications. 03/13/2023 Utilities Answer Date Recorded In the past 12 months, has t he electric, gas, oil or water company threatened to shut off services in your home? No 03/13/2023 Depression Answer Date Recorded Patient Health Questionnaire-2 Score 4 04/07/2024 Comments No Sex and Gender Information Value Date Recorded Sex Assigned at Female 03/17/2022 10:20 AM EDT Legal Sex Female 10:20 AM EDT Gender Identity Female 03/17/2022 10:20 AM EDT Sexual Orientation Straight 03/17/2022 10 :20 AM EDT Last Filed Vital Signs Vital Sign Reading Time Taken Comments Blood Pressure 170/81 04/07/2024 2:12 PM EST Pulse 68 04/07/2024 2:12 PM EST Temperature 36.6 ??C (97.8 ??F) 04/07/2024 2:12 PM ES T Respiratory Rate 20 04/07/2024 2:12 PM EST Oxygen Saturation 98% 04/07/2024 2:12 PM EST Inhaled Oxygen Concentration - - Weight 58.5 kg (129 lb) 04/07/2024 2:12 PM EST Height 153 cm (5' 0.25 ) 04/07/2024 2:12 PM EST Body Mass Index 24.98 04/07/2024 2:12 PM EST Plan of Treatment Upcoming Encounters Date Type Department Care Team (Late st Contact Info) Description 07/14/2024 1:30 PM EST Office Visit [facility] ADULT DENTAL [address] [place] [address] Alyse Cantor, DDS [address] [place] [address] 07/27/2024 2:00 PM EDT Office Visit [facility]EDS [address] [place], [place] [phone] Tal Parham MD [address] [place], [place] [phone] 08/05/2024 11:00 AM EDT Office Visit [facility] ADULT DENTAL [address] [place] [address] Eveline Marcia [address] [place] [address] 08/12/2024 11:00 AM EDT Office Visit [facility] ADULT DENT[facility] [address] [place] [address] Luis Miguel Mosqueraaris [address] [place] [address] Health Maintenance Due Date Last Done Comments CT Colonography 1949 Colonoscopy 1949 FIT 1949 FOBT 1950 Sigmoidoscopy 1949 Alcohol/Substance Use Screening 1961 COVID-19 Vaccine ( season) 2024 02/27/2023, 03/26/2022, 10/03/2021, Additional history exists SDOH Screening 03/13/2024 03/13/2023 RSV Patients and Patients Aged 60 years or older (1 - 1-dose 75+ series) 2024 Dental Oral Exam 09/07/2024 03/08/2024, 02/25/2022 Dental Prophylaxis 09/07/2024 03/08/2024, 06/26/2022 Depression Monitoring (PHQ-9) 10/05/2024 04/07/2024, 04/07/2024 Dental X-Ray: Full Mouth 01/29/2025 01/28/2022 Dental X-Ray: Bitewings 03/09/2025 03/08/2024, 02/25 Depression Screening 04/07/2025 04/07/2024, 04/07/20 Tobacco Screening 04/07/2025 04/07/2024 DTaP/Tdap/Td Vaccines (2 - Td or Tdap) 10/29/2025 10/30/2015, 04/08/2004 Colorectal Cancer Screening 08/30/2026 FIT DNA/Cologuard 08/30/2026 08/31/2023 Pneumococcal Vaccine: 50+ Years Completed 09/30/2014, 09/30/2014 Zoster Vaccines Completed 08/08/2021, 05/19, 03/23/2015 Hepatitis C Screening Completed 09/05/2021 Influenza Vaccine Completed 02/11/2024, , 02/06/2022, Additional history exists HIB Vaccines Aged Out No longer eligi ble based on patient's age to complete this topic HPV Vaccines Aged Out No longer eligi ble based on patient's age to complete this topic Hepatitis A Vaccines Aged Out No long er eligible based on patient's age to complete this topic Hepatitis B Vaccines Aged Out No long er eligible based on patient's age to complete this topic IPV Vaccines Aged Out No longer eligi ble based on patient's age to complete this topic Meningococcal Vaccine Aged Out No nolvia manuela eligible based on patient's age to complete this topic RSV under 20 months Aged Out No longe r eligible based on patient's age to complete this topic Rotavirus Vaccines Aged Out No longer eligible based on patient's age to complete this topic Procedures Procedure Name Priority Date/Time Associated Diagnosis Comments Full PROPHYLAXIS - ADULT Routine 03/08/2024 3:00 PM EDT Dental calculus Periodontal disease BITEWINGS - 4 RADIOGRAPHIC IMAGES Routine 03/08/2024 3:00 PM EDT Missing teeth, acquired Crowded teeth Dental calculus Periodontal disease PERIODIC ORAL EVALUATION - ESTABLISHED PATIENT Routine 03/08/2024 3:00 PM EDT LAB COLOGUARD?? COLON CANCER SCREEN Routine 08/31/2023 3:30 PM EDT Colon cancer screening ZZZ HISTORICAL HEPATITIS C AB W/REFL TO HCV RNA, QN, PCR Routine 09/05/2021 9:01 AM EDT from Last 3 Months or Most Recently Relevant to Health Maintenance Results * Cologuard?? colon cancer screening (08/31/2023 3:30 PM EDT) Cologuard Result Negative Negative 09/09/19 7:26 PM EDT [facility] (CLIA #:[id number]) Comment: NEGATIVE TEST RESULT. A negative Cologuard result indicates a low likelihood that a colorectal cancer (CRC) or advanced adenoma (adenomatous polyps with more advanced pre-malignant features) ??is present. The chance that a person with a negative Cologuard test has a colorectal cancer is less than 1 in 1500 (negative predictive value >99.9%) or has an ??advanced adenoma is less than ??5.3% (negative predictive value 94.7%). These data are based on a prospective cross-sectional study of 10,000 individuals at average risk for colorectal cancer who were screened with both Cologuard and colonoscopy. (Soham T. et al, N Engl J Med 2014;370(14):1286- 1297) The normal value (reference range) for this assay is negative. COLOGUARD RE-SCREENING RECOMMENDATION: Periodic colorectal cancer screening is an important part of preventive healthcare for asymptomatic individuals at average risk for colorectal cancer. ??Following a negative Cologuard result, the [place] [employer] Society and U.S. Multi-Society Task Force screening guidelines recommend a Cologuard re-screening interval of 3 years. References: [place] [employer] Guideline for Colorectal Cancer Screening: https://www.cancer.org/cancer/jjnzk-nzjxkr-zpeazs/cbzmvdssx-wqzqyousu-gtbuxrq/ac s-rec ommendations.html.; Damien DOCKERY, Shaun DUENAS, Patricia CHAKRABORTY, Colorectal Cancer Screening: Recommendations for Physicians and Patients from the U.S. Multi-Society Task Force on Colorectal Cancer Screening , Am J Gastroenterology 2017; 112:4518-9380. TEST DESCRIPTION: Composite algorithmic analysis of stool DNA-biomarkers with hemoglobin immunoassay. ?? Quantitative values of individual biomarkers are not reportable and are not associated with individual biomarker result reference ranges. Cologuard is intended for colorectal cancer screening of adults of either sex, 45 years or older, who are at average-risk for colorectal cancer (CRC). Cologuard has been approved for use by the U.S. FDA. The performance of Cologuard was established in a cross sectional study of average-risk adults aged 50-84. Cologuard performance in patients ages 45 to 49 years was estimated by sub-group analysis of near-age groups. Colonoscopies performed for a positive result may find as the most clinically significant lesion: colorectal cancer [4.0%], advanced adenoma (including sessile serrated polyps greater than or equal to 1cm diameter) [20%] or non- advanced adenoma [31%]; or no colorectal neoplasia [45%]. These estimates are derived from a prospective cross-sectional screening study of 10,000 individuals at average risk for colorectal cancer who were screened with both Cologuard and colonoscopy. (Soham Pedro al, N Engl J Med 2014;370(14):1838-8307.) Cologuard may produce a false negative or false positive result (no colorectal cancer or precancerous polyp present at colonoscopy follow up). A negative Cologuard test result does not guarantee the absence of CRC or advanced adenoma (pre-cancer). The current Cologuard screening interval is every 3 years. ([place] [employer] and U.S. Multi-Society Task Force). Cologuard performance data in a 10,000 patient pivotal study using colonoscopy as the reference method can be accessed at the following location: www.CSL DualCom/results. Additional description of the Cologuard test process, warnings and precautions can be found at [email or web address].comrd.com. Stool specimen (specimen) Rectal contents / Unknown 08/31/2023 3:30 PM EDT 09/03/2023 10:57 AM EDT us Tal Parham MD LAB MOLECULAR DIAGNOSTICS O RDERABLES Final Result [facility] (CLIA #:[id number]) [address] [place] [place] [address], * HEPATITIS C AB W/REFL TO HCV RNA, QN, PCR (09/05/2021 9:01 AM EDT) HEPATITIS C ANTIBODY NON-REACT ASHKAN NON-REACT ASHKAN [facility] INDEX 0.01 <1.00 [facility] Comment: ?? HCV antibody was non-reactive. There is no laboratory ?? evidence of HCV infection. ?? In most cases, no further action is required. However, if recent HCV exposure is suspected, a test for HCV RNA (test code 16617) is suggested. ?? For additional information please refer to http://education.H[employer] MEDIA/faq/NFZ79c0 (This link is being provided for informational/ educational purposes only.) ?? 09/05/2021 9:01 AM EDT Tal Parham MD HISTORICAL/NON ORDERABLE ADRIAN CAMARILLO Final Result [facility] [address] from Last 3 Months or Most Recently Relevant to Health Maintenance Insurance [facility] MEDICARE ADVANTAGE O DENTAL - [facility] Care Teams Orthodontist Assistant Relationship Specialty Start Date End Date Tal Parham MD [address] [place] [id number] PCP - General Internal Medicine 02/15/14
--- OUTSIDE RECORDS SUMMARY | 2024-07-08 10:10 | XMS_ITS | Encounter Summary ---
Author Organization [employer] Address [address] [facility] 7t [place] [address] Care Team Providers Care Electrician Substation Name Role Phone Tal Parham MD Primary Care Provider [phone] Encounter Details Date Type Department Care Team ([facility] Contact Info) Description 05/21/2023 Orders Only [facility] MED & PEDS [address] [place], [place] [phone] Tal Parham MD [address] [place], [place] [phone] Social History Tobacco Use Types Packs/Day Years Used Date Smoking Tobacco: Never Passive Smoke Exposure: Never Smokeless Tobacco: Never Housing Stability Answer Date Recorded What is [...] off services in your home? No 03/13/2023 Comments Unknown Sex and Gender Information Value Date Recorded Sex Assigned at Female 03/17/2022 10:20 AM EDT Legal Sex Female 10:20 AM EDT Gender Identity Female 03/17/2022 10:20 AM EDT Sexual Orientation Straight 03/17/2022 10 :20 AM EDT documented as of this encounter Plan of Treatment Upcoming Encounters Date Type Department Care Team (Late st Contact Info) Description 07/14/2024 1:30 PM EST Office Visit [facility] ADULT DENTAL [address] [place] [address] Staton-Vyas, Alyse, DDS [address] [place] [address] 07/27/2024 2:00 PM EDT Office Visit [facility] MED [facility] PEDS [address] [place] [address] Tal Parham MD [address] [place] [address] 08/05/2024 11:00 AM EDT Office Visit [facility] ADULT DENTAL [address] [place] [address] Eveline Marcia [address] [place] [address] 08/12/2024 11:00 AM EDT Office Visit [facility] ADULT DENTAL [address] [place] [address] Eveline, Marcia [address] [place] [address] documented as of this encounter Visit Diagnoses Not on filedocumented in this encounter Care Teams Electrician Substation Relationship Specialty Start Date End Date Tal Parham MD [address] [place] [address] PCP - General Internal Medicine 02/15/14 documented as of this encounter
--- OUTSIDE RECORDS SUMMARY | 2024-07-08 10:10 | XMS_ITS | Encounter Summary ---
Author Organization [employer] Address [address] [facility] 7t [place] [address] Care Team Providers Care Specialist Field Engineer Name Role Phone Tal Parham MD Primary Care Provider [phone] Reason for Visit * Reason Comments Med Refill Encounter Details Date Type Department Care Team ([facility] st Contact Info) Description 06/25/2024 Refill [facility] MEDICINE [address] [place] [address] Tal Parham MD [address] [place] [address] Social History Tobacco Use Types Packs/Day Years Used Date Smoking Tobacco: Never Passive Smoke Exposure: Never Smokeless Tobacco: Never Alcohol Use Standard Drinks/Week Comments Never 0 [...] Description 07/14/2024 1:30 PM EST Office Visit [facility] ADULT DENTAL [address] [place] [address] Alyse Cantor DDS [address] [place] [address] 07/27/2024 2:00 PM EDT Office Visit [facility] CHC MED & PEDS [address] [place], [place] [phone] Tal Parham MD [address] [place], [place] [phone] 08/05/2024 11:00 AM EDT Office Visit [facility] ADULT DENTAL [address] [place] [address] Luis Miguel Mosqueraaris [address] [place] [address] 08/12/2024 11:00 AM EDT Office Visit [facility] ADULT DENTAL [address] [place] [address] Eveline Marcia [address] [place] [address] documented as of this encounter Visit Diagnoses Not on filedocumented in this encounter Additional Health Concerns Assessment Noted Time PHQ-9 Depression Total Score: 18 024 2:41 PM EST documented as of this encounter Care Teams Specialist Field Engineer Relationship Specialty Start Date End Date Tal Parham MD [address] [place] [address] PCP - General Internal Medicine 02/15/14 documented as of this encounter
--- OUTSIDE RECORDS SUMMARY | 2024-07-08 10:10 | XMS_ITS | Encounter Summary ---
Author Organization [employer] Address [address] [facility] 7t [place] [address] Care Team Providers Care Director Consumer Name Role Phone Tal Parham MD Primary Care Provider [phone] Encounter Details Date Type Department Care Team ([facility] Contact Info) Description 07/13/2023 Orders Only [facility] CH[facility] MED & PEDS [address] [place], [place] [phone] Tal Parham MD [address] [place], [place] [phone] Social History Tobacco Use Types Packs/Day Years Used Date Smoking Tobacco: Never Passive Smoke Exposure: Never Smokeless Tobacco: Never Alcohol Use Standard Drinks/Week Comments Never 0 (1 standard drink = 0.6 oz pur e alcohol) Depression Answer Date Recorded Patient Health Questionnaire-9 Score 11 06/23/2023 Patient Health Questionnaire-9 Score 11 06/23/2023 Last PHQ-9: Questionnaire Data Not on file 0 06/23/2023 Housing Stability Answer Date Recorded What is [...] Answer Date Recorded Patient Health Questionnaire-2 Score 2 06/23/2023 Comments No Sex and Gender Information Value [...] Description 07/14/2024 1:30 PM EST Office Visit [facility] ADULT DENTAL [address] [place] [address] Alyse Cantor DDS [address] [place] [address] 07/27/2024 2:00 PM EDT Office Visit [facility] MED [facility] PEDS [address] [place], [place] [phone] Tal Parham MD [address] [place] [address] 08/05/2024 11:00 AM EDT Office Visit [facility] ADULT DENTAL [address] [place] [address] EvelineMarcia rodgers [address] [place] [address] 08/12/2024 11:00 AM EDT Office Visit [facility] ADULT DENTAL [address] [place] [address] Marcia Mosquera [address] [place] [address] documented as of this encounter Visit Diagnoses Not on filedocumented in this encounter Additional Health Concerns Assessment Noted Time PHQ-9 Depression Total Score: 11 024 2:56 PM EST documented as of this encounter Care Teams Director Consumer Relationship Specialty Start Date End Date Tal Parham MD [address] [place] [address] PCP - General Internal Medicine 02/15/14 documented as of this encounter
--- OUTSIDE RECORDS SUMMARY | 2024-07-08 10:10 | XMS_ITS | Encounter Summary ---
Author Organization [employer] Address [address] [place] [address] [address] [place] [address] Care Team Providers Care Stationary Engineer Refrigeration Name Role Phone Tal Parham MD Primary Care Provider [phone] Encounter Details Date Type Department Care Team (Latest Contact Info) Description 11/26/2018 Abstract [facility] CONVERSIONS Dental, Provider, DDS Social History Tobacco Use Types Packs/Day Years Used Date Smoking Tobacco: Never Assessed Comments Unknown Sex and Gender Information Value [...] Description 07/14/2024 1:30 PM EST Office Visit [facility] ADULT DENTAL [address] [place] [address] Alyse Cantor DDS [address] [place] [address] 07/27/2024 2:00 PM EDT Office Visit [facility] CH[facility] MED & PEDS [address] [place] [address] Tal Parham MD [address] [place] [address] 08/05/2024 11:00 AM EDT Office Visit [facility] ADULT DENTAL [address] [place] [address] Marcia Mosquera [address] [place] [address] 08/12/2024 11:00 AM EDT Office Visit [facility] ADULT DENTAL [address] [place] [address] Marcia Mosquera [address] [place] [address] documented as of this encounter Visit Diagnoses Not on filedocumented in this encounter Care Teams Stationary Engineer Refrigeration Relationship Specialty Start Date End Date Tal Parham MD [address] [place] [phone] PCP - General Internal Medicine 02/15/14 documented as of this encounter
--- OUTSIDE RECORDS SUMMARY | 2024-07-08 10:10 | XMS_ITS | Encounter Summary ---
Author Organization [employer] Address [address] [place] [address] [address] [place] [address] Care Team Providers Care Preparation Supervisor Canning Name Role Phone Tal Parham MD Primary Care Provider [phone]- [phone] Encounter Details Date Type Department Care Team (Latest Contact Info) Description 03/05/2021 Abstract [facility] CONVERSIONS Dental, Provider, DDS Social History [...] Description 07/14/2024 1:30 PM EST Office Visit [facility] ADULT DENTAL [address] [place] [address] Alyse Cantor DDS [address] [place] [address] 07/27/2024 2:00 PM EDT Office Visit [facility] MED [facility] PEDS [address] [place] [address] Tal Parham MD [address] [place] [address] 08/05/2024 11:00 AM EDT Office Visit [facility] ADULT DENTAL [address] [place] [address] Marcia Mosquera [address] [place] [address] 08/12/2024 11:00 AM EDT Office Visit [facility] ADULT DENTAL [address] [place] [address] Marcia Mosquera [address] [place] [address] documented as of this encounter Visit Diagnoses Not on filedocumented in this encounter Care Teams Preparation Supervisor Canning Relationship Specialty Start Date End Date Tal Parham MD [address] [place] [address] PCP - General Internal Medicine 02/15/14 documented as of this encounter
--- OUTSIDE RECORDS SUMMARY | 2024-07-08 10:10 | XMS_ITS | Encounter Summary ---
Author Organization [employer] Address [address] [facility] 7 [place] [address] Care Team Providers Care Supervisor Type Bar And Segment Name Role Phone Tal Parham MD Primary Care Provider [phone] Reason for Visit * Reason Comments Med Refill Encounter Details Date Type Department Care Team ([facility] Contact Info) Description 07/19/2022 Refill [facility] MEDICINE [address] [place] [address] Tal Parham MD [address] [place] [address] [phone] Essential hypertension (Primary Dx) Social History Tobacco Use Types Packs/Day Years Used Date Smoking Tobacco: Never Passive Smoke Exposure: Never Smokeless Tobacco: Never Comments Unknown Sex and Gender Information Value Date Recorded Sex Assigned at Female 03/17/2022 10:20 AM EDT Legal Sex Female 10:20 AM EDT Gender Identity Female 03/17/2022 10:20 AM EDT Sexual Orientation Straight 03/17/2022 10 :20 AM EDT COVID-19 Exposure Response Date Recorded In the last 10 days, have yo u been in contact with someone who was confirmed or suspected to have Coronavirus/COVID-19? No / Unsure 06/26/2022 2:23 PM EST documented as of this encounter Plan of Treatment Upcoming Encounters Date Type Department Care Team ([facility] Contact Info) Description 07/14/2024 1:30 PM EST Office Visit [facility] ADULT DENTAL [address] [place] [address] Alyse Cantor DDS [address] [place] [address] 07/27/2024 2:00 PM EDT Office Visit [facility] MED & PEDS [address] [place] [address] Tal Parham MD [address] [place] [address] 08/05/2024 11:00 AM EDT Office Visit [facility] ADULT DENTAL [address] [place] [address] [address]cia Mosquera [address] [place] [address] 08/12/2024 11:00 AM EDT Office Visit [facility] ADULT DENTAL [address] [place] [address] Marcia Mosquera [address] [place] [address] documented as of this encounter Visit Diagnoses Diagnosis Essential hypertension- Primary Unspecified essential hypertension documented in this encounter Care Teams Supervisor Type Bar And Segment Relationship Specialty Start Date End Date Tal Parham MD [address] [place] [address] PCP - General Internal Medicine 02/15/14 documented as of this encounter
--- OUTSIDE RECORDS SUMMARY | 2024-07-08 10:10 | XMS_ITS | Encounter Summary ---
Author Organization [employer] Address 75 [facility] 7t [place] [address] Care Team Providers Care Rn Plasma Center Name Role Phone Tal Parham MD Primary Care Provider [phone] Reason for Visit * Reason Comments Med Refill Encounter Details Date Type Department Care Team ([facility] Contact Info) Description 07/24/2023 Refill [facility] CHC MED & PEDS [address] [place], [place] [phone] Tal Parham MD [address] [place] [address] Social History Tobacco Use Types Packs/Day Years [...] Description 07/14/2024 1:30 PM EST Office Visit [facility] ADULT DENTAL [address] [place] [address] Alyse Cantor DDS [address] [place] [address] 07/27/2024 2:00 PM EDT Office Visit [facility] CHC MED & PEDS [address] [place], [place] [phone] Tal Parham MD [address] [place], [place] [phone] 08/05/2024 11:00 AM EDT Office Visit [facility] ADULT DENTAL [address] [place] [address] Marcia Mosquera [address] [place] [address] 08/12/2024 11:00 AM EDT Office Visit [facility] ADULT DENTAL [address] [place] [address] Eveline, Marcia [address] [place] [address] documented as of this encounter Visit Diagnoses Not on filedocumented in this encounter Additional Health Concerns Assessment Noted Time PHQ-9 Depression Total Score: 11 024 2:56 PM EST documented as of this encounter Care Teams Rn Plasma Center Relationship Specialty Start Date End Date Tal Parham MD [address] [place] [phone] PCP - General Internal Medicine 02/15/14 documented as of this encounter
[2024-07-08 11:40] LABS: Alanine Aminotransferase 19 U/L (0-31); Albumin Level 4.4 g/dL (3.5-5.0); Alkaline Phosphatase 80 U/L (39-117); Anion Gap 12 (12-20); Aspartate Amino Transferase 20 U/L (5-31); Bilirubin Total 0.4 mg/dL (0.0-1.0); Blood Urea Nitrogen 14 mg/dL (9-16); Calcium 9.7 mg/dL (8.4-10.2); Carbon Dioxide 29 mmol/L (22-29); Chloride 107 mmol/L (96-108); Cholesterol 196 mg/dL (<200); Estimated Glomerular Filt Rate > 60; Glucose Random 97 mg/dL (60-115); HDL Cholesterol 47 mg/dL (>40); LDL Cholesterol Calculated 108 mg/dL (<100); Potassium 4.6 mmol/L (3.3-5.1); Sodium 143 mmol/L (135-145); TSH reflex Free T4 3.17 uIU/mL (0.32-4.0); Total Protein 8.1 g/dL (6.5-8.0); Triglycerides 205 mg/dL (<150)
== END 2024-07-08 09:37 | disposition home or self-care (01) ==
LOC: HO.HHCL 09:36
PROVIDERS: Visit Provider Internal Medicine
DX: E78.00 Pure hypercholesterolemia, unspecified (principal)
CPT/HCPCS: 36415; 80053; 80061; 84443

== ENCOUNTER 2025-03-23 16:15 | Outpatient (REF) | payer MEDICARE, SELFPAY ==
--- OUTSIDE RECORDS SUMMARY | 2025-03-23 15:30 | XMS_ITS | Encounter Summary ---
Author Organization [employer] Address [address] [place] [address] 7 [place] [address] Care Team Providers Care Shirt Hemmer Name Role Phone Tal Parham MD Primary Care Provider [phone] Reason for Referral * Consultation (Routine) - Pending Review Specialty Diagnoses / Procedures Referred By Contjamey t Referred To Contact Behavioral Health Diagnoses Recurrent major depressive disorder, in partial remission (CMS/HCC) Procedures Referral to Behavioral Health Tal Parham MD [address] [place] [address] Phone: tel: fax: Referral ID Status Reason Start Date Expiration Date Visits Requested Visits Authorized [id number] Pending Review Specialty Services Required 03/23/2025 09/21/2026 1 1 Reason for Visit * Reason Comments Abdominal Pain Encounter Details Date Type Department Care Team ([facility] Contact Info) Description 03/23/2025 3:30 PM EST Office Visit [facility] CHC MED & PEDS [address] [place] [address] Tal Parham MD [address] [place] [address] Diarrhea, unspecified type (Primary Dx); Recurrent major [...] - Denies diarrhea - Denies cancer - Ransom feverish yesterday and today, but no fever [...] Description 06/13/2025 3:00 PM EST Office Visit [facility] ADULT DENTAL [address] [place] [address] EvelineLuis MiguelMarcia [address] [place] [address] Scheduled Orders Name Type Priority Associated Diagnoses [...] EST) Magnesium 2.3 1.6 - 2.6 mg/dL [facility] Blood Venous blood specimen / Unknown 03/23/2025 4:16 PM EST 03/23/2025 5:31 PM EST us Tal Parham MD LAB BLOOD ORDERABLES Final Result [facility] [address] [place] [address] [phone] * (ABNORMAL) Basic Metabolic Panel (03/23/2025 4:16 PM EST) Sodium 143 135 - 145 mmol/L [facility] Potassium 4.3 3.3 - 5.1 mmol/L [facility] Chloride 106 96 - 108 mmol/L [facility] Carbon Dioxide 25 22 - 29 mmol/L [facility] Anion Gap 16 12 - 20 [facility] Urea Nitrogen (BUN) 17(H) 9 - 16 mg/dL [facility] Creatinine, Serum 0.46(L) 0.5 - 1.4 mg/dL [facility] Estimated Glomerular Filt Rate >60 [facility] Comment:Chronic Kidney Disea se: Estimated GFR < 60 mL/min/[id number] Kidney Disease: Estimated GFR < 15 mL/min/1.73m2 Glucose 119(H) 60 - 115 mg/dL [facility] Calcium 10.0 8.4 - 10.2 mg/dL [facility] Blood Venous blood specimen / Unknown 03/23/2025 4:16 PM EST 03/23/2025 5:31 PM EST us Tal Parham MD LAB BLOOD ORDERABLES Final Result Performing Organization Address [facility] Co de Phone Number [facility] [address] [place] [address] [phone] * TSH W/Reflex to FT4 (03/23/2025 4:16 PM EST) TSH reflex Free T4 2.91 0.32 - 4.0 uIU/mL [facility] Blood Venous blood specimen / Unknown 03/23/2025 4:16 PM EST 03/23/2025 5:31 PM EST us Tal Parham MD LAB BLOOD ORDERABLES Final Result Performing Organization Address [facility] de Phone Number [facility] [address] [place] [address] [phone] documented in this encounter Visit Diagnoses Diagnosis Diarrhea, unspecified type- Primary Recurrent major depressive disorder, in partial remission (CMS/HCC) documented in this encounter Additional Health Concerns Assessment Noted Time PHQ-9 Depression Total Score: 7 03/23/20 25 3:48 PM EST documented as of this encounter Care Teams Shirt Hemmer Relationship Specialty Start Date End Date Tal Parham MD [address] [place] [phone] PCP - General Internal Medicine 02/15/14 documented as of this encounter
[2025-03-23 18:12] LABS: Anion Gap 16 (12-20); Blood Urea Nitrogen 17 mg/dL (9-16); Calcium 10.0 mg/dL (8.4-10.2); Carbon Dioxide 25 mmol/L (22-29); Chloride 106 mmol/L (96-108); Estimated Glomerular Filt Rate > 60; Magnesium 2.3 mg/dL (1.6-2.6); Potassium 4.3 mmol/L (3.3-5.1); Sodium 143 mmol/L (135-145)
--- OUTSIDE RECORDS SUMMARY | 2025-03-23 18:37 | XMS_ITS | Encounter Summary ---
Author Organization [employer] Address [address] [facility] 7t [place] [address] Care Team Providers Care Tire Adjuster Name Role Phone Tal Parham MD Primary Care Provider [phone] Reason for Visit * Reason Comments Med Refill Encounter Details Date Type Department Care Team ([facility] st Contact Info) Description 03/17/2025 Refill [facility] MEDICINE [address] [place] [address] Tal Parham MD [address] [place] [address] Social History Tobacco Use Types Packs/Day Years [...] got money to buy more: Never True 07/20/2024 Within the past 12 months,th e food you bought just didn't last and you didn't have enough money to get more: Never True 09/2024 Transportation Answer Date Recorded In the past [...] Recorded Patient Health Questionnaire-2 Score 4 04/07/2024 Internet Access Answer Date Recorded Internet Access [...] Description 06/13/2025 3:00 PM EST Office Visit [facility] ADULT DENTAL [address] [place] [address] Eveline, Marcia [address] [place] [address] documented as of this encounter Visit Diagnoses Not on filedocumented in this encounter Additional Health Concerns Assessment Noted Time PHQ-9 Depression Total Score: 18 024 2:41 PM EST documented as of this encounter Care Teams Tire Adjuster Relationship Specialty Start Date End Date Tal Parham MD [address] [place] [address] PCP - General Internal Medicine 02/15/14 documented as of this encounter
--- OUTSIDE RECORDS SUMMARY | 2025-03-23 18:37 | XMS_ITS | Encounter Summary ---
Author Organization [employer] Address 75 [facility] 7 [place] [address] Care Team Providers Care Zyglo Inspector Name Role Phone Tal Parham MD Primary Care Provider [phone] Reason for Visit * Reason Comments Med Refill Encounter Details Date Type Department Care Team ([facility] Contact Info) Description 07/24/2023 Refill [facility] CHC MED & PEDS [address] [place], [place] [phone] Tal Parham MD [address] [place] [address] Social History Tobacco Use Types Packs/Day Years [...] Description 06/13/2025 3:00 PM EST Office Visit [facility] ADULT DENTAL [address] [place] [address] Eveline, Marcia [address] [place] [address] documented as of this encounter Visit Diagnoses Not on filedocumented in this encounter Additional Health Concerns Assessment Noted Time PHQ-9 Depression Total Score: 11 024 2:56 PM EST documented as of this encounter Care Teams Zyglo Inspector Relationship Specialty Start Date End Date Tal Parham MD [address] [place] [address] PCP - General Internal Medicine 02/15/14 documented as of this encounter
--- OUTSIDE RECORDS SUMMARY | 2025-03-23 18:37 | XMS_ITS | Encounter Summary ---
Author Organization [employer] Address [address] [place] [address] 7 [place] [address] Care Team Providers Care Spooler Operator Name Role Phone Tal Parham MD Primary Care Provider [phone] Encounter Details Date Type Department Care Team (Latest Contact Info) Description 11/26/2018 Abstract [facility] Dental, Provider, DDS Social History Tobacco [...] Description 06/13/2025 3:00 PM EST Office Visit [facility] ADULT DENTAL [address] [place] [address] Eveline, Marcia [address] [place] [address] documented as of this encounter Visit Diagnoses Not on filedocumented in this encounter Care Teams Spooler Operator Relationship Specialty Start Date End Date Tal Parham MD [address] [place] [address] PCP - General Internal Medicine 02/15/14 documented as of this encounter
--- OUTSIDE RECORDS SUMMARY | 2025-03-23 18:37 | XMS_ITS | Encounter Summary ---
Author Organization [employer] Address [address] [place] [address] 7 [place] [address] Care Team Providers Care Staff Editor Name Role Phone Tal Parham MD Primary Care Provider [phone] Encounter Details Date Type Department Care Team (Latest Contact Info) Description 03/05/2021 Abstract [facility] CONVERSIONS Dental, Provider, DDS Social History [...] Description 06/13/2025 3:00 PM EST Office Visit [facility] ADULT DENTAL [address] [place] [address] Eveline, Marcia [address] [place] [address] documented as of this encounter Visit Diagnoses Not on filedocumented in this encounter Care Teams Staff Editor Relationship Specialty Start Date End Date Tal Parham MD [address] [place] [address] PCP - General Internal Medicine 02/15/14 documented as of this encounter
--- OUTSIDE RECORDS SUMMARY | 2025-03-23 18:37 | XMS_ITS | Encounter Summary ---
Author Organization [employer] Address [address] [facility] 7t [place] [address] Care Team Providers Care Flight Information Expediter Name Role Phone Tal Parham MD Primary Care Provider [phone] Encounter Details Date Type Department Care Team ([facility] Contact Info) Description 05/21/2023 Orders Only [facility] CHC MED & PEDS [address] [place], [place] [phone] Tal Parham MD [address] [place], [place] [phone] Social History Tobacco Use Types Packs/Day Years [...] Description 06/13/2025 3:00 PM EST Office Visit [facility] ADULT DENTAL [address] [place], [place] [phone] Evelnie, Marcia [address] [place] [address] documented as of this encounter Visit Diagnoses Not on filedocumented in this encounter Care Teams Flight Information Expediter Relationship Specialty Start Date End Date Tal Parham MD [address] [place] [phone] PCP - General Internal Medicine 02/15/14 documented as of this encounter
--- OUTSIDE RECORDS SUMMARY | 2025-03-23 18:37 | XMS_ITS | Clinical Summary ---
Author Organization [employer] Address [address] [place] [address] 7t [place] [address] Care Team Providers Care Analog Circuit Designer Name Role Phone Tal Parham MD Primary Care Provider [phone] Allergies No known active allergies Medications sertraline (Zoloft) 100 MG tabletIndications :Recurrent major depressive disorder, in partial remission (CMS/HCC) TAKE ONE TABLET BY MOUTH EVERY DAY 30 tablet 5 3 Active timolol (Timoptic) 0.5 % ophthalmic solution INSTILL 1 DROP IN BOTH EYES ONCE DAILY IN THE MORNING 3 Active Aspirin Low Dose 81 MG EC tabletIndications :Essential hypertension TAKE ONE TABLET BY MOUTH EVERY DAY 90 tablet 3 3 Active latanoprost (Xalatan) 0.005 % ophthalmic solution 4 Active sertraline (Zoloft) 100 MG tablet TAKE 1 TABLET BY MOUTH IN THE MORNING 30 tablet 11 5 Active atorvastatin (Lipitor) 40 MG tabletIndications :Hypercholesterol emia TAKE 1 TABLET BY MOUTH IN THE MORNING 100 tablet 2 5 Active alendronate (Fosamax) 70 MG tabletIndications :Other osteoporosis without current pathological fracture TAKE 1 TABLET BY MOUTH WEEKLY WITH 8 OZ OF PLAIN WATER 30 MINUTES BEFORE FIRST FOOD, DRINK OR MEDS. STAY UPRIGHT FOR 30 MINS 12 tablet 3 5 Active acetaminophen (Tylenol 8 Hour) 650 MG ER tabletIndications :Open fracture of tooth, sequela,Ankylosis of tooth Take 1 tablet (650 mg) by mouth every 8 (eight) hours if needed for mild pain. Do not crush, chew, or split. 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 Major depressive disorder in partial remission 1 06/07/2023 Depression 04/07/2024 Glaucoma of both eyes 04/07/2024 Dental plaque on multiple teeth 03/08/2024 Missing teeth, acquired 03/08/2024 Crowded teeth 03/08/2024 Dental calculus 03/08/2024 Periodontal disease 03/08/2024 Open fracture of tooth 03/08/2024 Encounters Date Type Department Care Team Description 03/23/2025 3:30 PM EST Office Visit [facility] [address] [place] [address] Tal Parham MD Diarrhea, unspecified type (Primary Dx); Recurrent major depressive disorder, in partial remission (CMS/HCC) 03/23/2025 Orders Only [facility] [address] [place] [address] Tal Parham MD Diarrhea, unspecified type (Primary Dx) 03/23/2025 Travel 03/17/2025 Refill [facility] [address] [place] [phone] Tal Parham MD 03/16/2025 Telephone [facility] [address] [place] [phone] Tal Parham MD Nurse Triage 01/25/2025 2:45 PM EDT Office Visit [facility] ADULT DENTAL [address] [place] [address] Staton-Yvas, Alyse, DDS Missing teeth, acquired (Primary Dx) 01/23/2025 1:30 PM EDT Office Visit [facility] ADULT DENTAL [address] [place] [address] Staton-Vyas, Alyse, DDS Missing teeth, acquired (Primary Dx) 12/29/2024 2:30 PM EDT Office Visit [facility] ADULT DENTAL [address] [place] [phone] Staton-Vyas, Alyse, DDS Full coverage crown needed for tooth at risk for fracture (Primary Dx) from Last 3 Months Immunizations Immunization Administration Dates Next Due Influenza High-dose Quadrivalent Preservative Fr ee 02/27/2023 Influenza Quadrivalent Adjuvanted 02/06/2022 Influenza injectable quadriv alent IIV4 with preservative 01/28/2018 Influenza injectable quadrivalent preservative f ree 04/17/2021,01/30/2015 Influenza, High Dose Seasonal, Preservative Free 02/03/2018,02/05/2016 Influenza, IIV3, injectable 01/27/2013 Influenza, seasonal, injectable, preservative fr ee 01/23/2015 Moderna Covid-19 Vaccine 12+ 10/03/2021 Pfizer Covid-19 Vaccine 12+ 02/27/2023 Pfizer Covid-19 Vaccine 12+ nara-sucrose (Rajiv stahl) 04/02/2021 Social History Tobacco Use Types Packs/Day [...] Mass Index 24.21 03/23/2025 3:30 PM EST Plan of Treatment Upcoming Encounters Date Type Department Care Team (Late st Contact Info) Description 06/13/2025 3:00 PM EST Office Visit [facility] ADULT DENTAL [address] [place] [address] Eveline, Marcia [address] [place] [address] Health Maintenance Due Date Last Done Comments CT Colonography 1949 Colonoscopy 1950 FIT 1950 Sigmoidoscopy 1950 RSV Patients and Patients Aged 60 years or older (1 - 1-dose 75+ series) 2024 FOBT 08/30/2024 08/31/2023 Dental Oral Exam 06/03/2025 11/30/2024, , 02/25/2022 Dental Prophylaxis 06/03/2025 11/30/2024, 1 , 06/26/2022 COVID-19 Vaccine ( season) 2025 02/02/2025, 02/27/2023, 03/26/2022, Additional history exists DTaP/Tdap/Td Vaccines (2 - Td or Tdap) 10/29/2025 10/30/2015, 04/08/2004 Dental X-Ray: Bitewings 12/01/2025 12/01/19, 07/14/2024, 03/08/2024, Additional history exists Alcohol/Substance Use Screening 03/23/2026 03/23/2025 Depression Screening 03/23/2026 03/23/2025, 03/23/20 SDOH Screening 03/23/2026 03/23/2025 Tobacco Screening 03/23/2026 03/23/2025 Colorectal Cancer Screening 08/30/2026 FIT DNA/Cologuard 08/30/2026 08/31/2023 Dental X-Ray: Full Mouth 11/18/2027 11/16/2024, 01/16 Pneumococcal Vaccine: 50+ Years Completed 09/30/2014, 09/30/2014 Zoster Vaccines Completed 08/08/2021, 05/19, 03/23/2015 Hepatitis C Screening Completed 09/05/2021 Influenza Vaccine Completed 02/02/2025, , 02/27/2023, Additional history exists HIB Vaccines Aged Out [...] patient's age to complete this topic Meningococcal B Vaccine Aged Out No l onger eligible based on patient's age to complete [...] Procedure Name Priority Date/Time Associated Diagnosis Comments MAGNESIUM Routine 03/23/2025 4:16 PM EST Diarrhea, unspecified type BASIC METABOLIC PANEL Routine 03/23/2025 4:16 PM EST Diarrhea, unspecified type TSH W/REFLEX TO FT4 Routine 03/23/2025 4 :16 PM EST Diarrhea, unspecified type CASE PRESENTATION, DETAILED AND EXTENSIVE TREATMENT PLANNING Routine 01/25/2025 2:45 PM EDT Missing teeth, acquired 3 ADD TOOTH TO EXISTING PARTIAL DENTURE Routine 01/25/2025 2:45 PM EDT Missing teeth, acquired 2 ADD TOOTH TO EXISTING PARTIAL DENTURE Routine 01/25/2025 2:45 PM EDT Missing teeth, acquired DENTURE IMPRESSION Routine 01/23/2025 1: 30 PM EDT Missing teeth, acquired INTRAORAL - PERIAPICAL FIRST RADIOGRAPHIC IMAGE Routine 12/29/2024 2:30 PM EDT CASE PRESENTATION, DETAILED AND EXTENSIVE TREATMENT PLANNING Routine 12/29/2024 2:30 PM EDT Full coverage crown needed for tooth at risk for fracture INTRAORAL - PERIAPICAL FIRST RADIOGRAPHIC IMAGE Routine 12/29/2024 2:30 PM EDT Full coverage crown needed for tooth at risk for fracture 6 CROWN - PORCELAIN/CERAMIC Routine 12/29/2024 2:30 PM EDT Full coverage crown needed for tooth at risk for fracture Full PROPHYLAXIS - ADULT Routine 11/30/2024 3:00 PM EDT Periodontal disease BITEWINGS - 3 RADIOGRAPHIC IMAGES Routine 11/30/2024 3:00 PM EDT PERIODIC ORAL EVALUATION - ESTABLISHED PATIENT Routine 11/30/2024 3:00 PM EDT PANORAMIC RADIOGRAPHIC IMAGE Routine 11/16/2024 1:00 PM EDT LAB COLOGUARD COLON CANCER SCREEN Routine 08/31/2023 3:30 PM EDT Colon cancer screening ZZZ HISTORICAL HEPATITIS C AB W/REFL TO HCV RNA, QN, PCR Routine 09/05/2021 9:01 AM EDT from Last 3 Months or Most Recently Relevant to Health Maintenance Results * TSH W/Reflex to FT4 (03/23/2025 4:16 PM EST) TSH reflex Free T4 2.91 0.32 - 4.0 uIU/mL [facility] Blood Venous blood specimen / Unknown 03/23/2025 4:16 PM EST 03/23/2025 5:31 PM EST Tal Parham MD LAB BLOOD ORDERABLES Final Result Performing Organization Address [facility]/ZIP Co de Phone Number [facility] [address] [place] [phone] * Magnesium (03/23/2025 4:16 PM EST) Magnesium 2.3 1.6 - 2.6 mg/dL [facility] Blood Venous blood specimen / Unknown 03/23/2025 4:16 PM EST 03/23/2025 5:31 PM EST Tal Parham MD LAB BLOOD ORDERABLES Final Result Performing Organization Address [facility] de Phone Number [facility] [address] [place] [phone] * (ABNORMAL) Basic Metabolic Panel (03/23/2025 4:16 PM EST) Pathologist [facility] Sodium 143 135 - 145 mmol/L [facility] Potassium 4.3 3.3 - 5.1 mmol/L [facility] Chloride 106 96 - 108 mmol/L [facility] Carbon Dioxide 25 22 - 29 mmol/L [facility] Anion Gap 16 12 - 20 [facility] Urea Nitrogen (BUN) 17(H) 9 - 16 mg/dL [facility] Creatinine, Serum 0.46(L) 0.5 - 1.4 mg/dL [facility] Estimated Glomerular Filt Rate >60 [facility] Comment:Chronic Kidney Disea se: Estimated GFR < 60 mL/min/1.99g5Hdqpyq Kidney Disease: Estimated GFR < 15 mL/min/1.73m2 Glucose 119(H) 60 - 115 mg/dL [facility] Calcium 10.0 8.4 - 10.2 mg/dL [facility] Blood Venous blood specimen / Unknown 03/23/2025 4:16 PM EST 03/23/2025 5:31 PM EST Tal Parham MD LAB BLOOD ORDERABLES Final Result [facility] [address] [place] [address] [phone] * Cologuard?? colon cancer screening (08/31/2023 3:30 PM EDT) Cologuard Result Negative Negative 09/09/19 24 7:26 PM EDT [employer] (CLIA #:[id number]) Comment: NEGATIVE TEST RESULT. A negative Cologuard result indicates a low likelihood that a colorectal cancer (CRC) or advanced adenoma (adenomatous polyps with more advanced pre-malignant features) is present. The chance that a person with a negative Cologuard test has a colorectal cancer is less than 1 in 1500 (negative predictive value >99.9%) or has an advanced adenoma is less than 5.3% (negative predictive value 94.7%). These data are based on a prospective cross-sectional study of 10,000 individuals at average risk for colorectal cancer who were screened with both Cologuard and colonoscopy. (Soham Pedro al, N Engl J Med 2014;370(14):5113-2168) The normal value (reference range) for this assay is negative. COLOGUARD RE-SCREENING RECOMMENDATION: Periodic colorectal cancer screening is an important part of preventive healthcare for asymptomatic individuals at average risk for colorectal cancer. Following a negative Cologuard result, the [place] Cancer Society and U.S. Multi-Society Task Force screening guidelines recommend a Cologuard re-screening interval of 3 years. References: [place] [employer] Guideline for Colorectal Cancer Screening: https://www.cancer.org/cancer/bteox-hnawnw-mojesm/xapbgeqgm-mpmlrzrlc-kammiyc/ac s-rec ommendations.html.; Damien DOCKERY, Shaun DUENAS, Patricia GarciaK, Colorectal Cancer Screening: Recommendations for Physicians and Patients from the U.S. Multi-Society Task Force on Colorectal Cancer Screening , Am J Gastroenterology 2017; 112:8487-8302. TEST DESCRIPTION: Composite algorithmic analysis of stool DNA-biomarkers with hemoglobin immunoassay. Quantitative values of individual biomarkers are not [...] screened with both Cologuard and colonoscopy. (Soham Henson et al, N Engl J Med 2014;370(14):9433-7835.) Cologuard may produce a false negative or false positive result (no colorectal cancer or precancerous polyp present at colonoscopy follow up). A negative Cologuard test result does not guarantee the absence of CRC or advanced adenoma (pre-cancer). The current Cologuard screening interval is every 3 years. ([place] Cancer Society and U.S. Multi-Society Task Force). Cologuard performance data in a 10,000 patient pivotal study using colonoscopy as the reference method can be accessed at the following location: www.[employer]/results. Additional description of the Cologuard test process, warnings and precautions can be found at www.[employer].com. Stool specimen (specimen) Rectal contents / Unknown 08/31/2023 3:30 PM EDT 09/03/2023 10:57 AM EDT us Tal Parham MD LAB MOLECULAR DIAGNOSTICS O RDERABLES Final Result [employer] (CLIA #:[id number]) [place] [address], * HEPATITIS C AB W/REFL TO HCV RNA, QN, PCR (09/05/2021 9:01 AM EDT) HEPATITIS C ANTIBODY NON-REACT ASHKAN NON-REACT ASHKAN [facility] INDEX 0.01 <1.00 [facility] Comment: HCV antibody was non-reactive. There is no laboratory evidence of HCV infection. In most cases, no further action is required. However, if recent HCV exposure is suspected, a test for HCV RNA (test code 06905) is suggested. For additional information please refer to http://education.Kickboard/faq/HXY39h9 (This link is being provided for informational/ educational purposes only.) 09/05/2021 9:01 AM EDT us Tal Parham MD HISTORICAL/NON ORDERABLE ADRIAN CAMARILLO Final Result [facility] [address] from Last 3 Months or Most Recently Relevant to Health Maintenance Insurance [facility] AARP MEDICARE ADVANTAGE O DENTAL [facility] DENTAL - N FULL (MEDICAID) Care Teams Analog Circuit Designer Relationship Specialty Start Date End Date Tal Parham MD [address] [place] [phone] PCP - General Internal Medicine 02/15/14
--- OUTSIDE RECORDS SUMMARY | 2025-03-23 18:37 | XMS_ITS | Encounter Summary ---
Author Organization [employer] Address 75 [facility] 7t [place] [address] Care Team Providers Care Land Economist Name Role Phone Tal Parham MD Primary Care Provider [phone] Encounter Details Date Type Department Care Team ([facility] Contact Info) Description 07/13/[address] [facility] CHC MED & PEDS [address] [place], [place] [phone] Tal Parham MD [address] [place], [place] [phone] Social History Tobacco Use Types Packs/Day Years [...] Description 06/13/2025 3:00 PM EST Office Visit [facility] ADULT DENTAL [address] [place] [address] Eveline, Marcia [address] [place] [address] documented as of this encounter Visit Diagnoses Not on filedocumented in this encounter Additional Health Concerns Assessment Noted Time PHQ-9 Depression Total Score: 11 024 2:56 PM EST documented as of this encounter Care Teams Land Economist Relationship Specialty Start Date End Date Tal Parham MD [address] [place] [address] PCP - General Internal Medicine 02/15/14 documented as of this encounter
--- OUTSIDE RECORDS SUMMARY | 2025-03-23 18:37 | XMS_ITS | Encounter Summary ---
Author Organization [employer] Address 75 [facility] 7t [place] [address] Care Team Providers Care Dean For Student Affairs Name Role Phone Tal Parham MD Primary Care Provider [phone] Encounter Details Date Type Department Care Team (Latest Contact Info) Description 03/23/2025 Travel Social History Tobacco Use Types Packs/Day Years [...] AM EDT documented as of this encounter Functional Status * Over the [...] than half the days 03/23/2025 3:48 PM [place] * Trouble falling or staying asleep, [...] 3:48 PM Ray [place] * Feeling bad about yourself [...] of Assessment Author 7 03/23/2025 3:48 PM Giovanna [place] * How difficult have these problems made it for you to do your work, take care of things at home, or get along with other people? Answer Date of Assessment Author Somewhat difficult 03/23/2025 3:48 PM [place] documented as of this encounter Plan of Treatment Upcoming Encounters Date Type Department Care Team (Late st Contact Info) Description 06/13/2025 3:00 PM EST Office Visit [facility] ADULT DENTAL [address] [place] [address] Eveline, Marcia [address] [place] [address] documented as of this encounter Visit Diagnoses Not on filedocumented in this encounter Additional Health Concerns Assessment Noted Time PHQ-9 Depression Total Score: 7 03/23/20 25 3:48 PM EST documented as of this encounter Care Teams Dean For Student Affairs Relationship Specialty Start Date End Date Tal Parham MD [address] [place] [phone] PCP - General Internal Medicine 02/15/14 documented as of this encounter
--- OUTSIDE RECORDS SUMMARY | 2025-03-23 18:37 | XMS_ITS | Encounter Summary ---
Author Organization [employer] Address 75 [facility] 7t [place] [address] Care Team Providers Care Bolt Maker Name Role Phone Tal Parham MD Primary Care Provider [phone] Encounter Details Date Type Department Care Team ([facility] Contact Info) Description 03/23/2025 Orders Only [facility] CHC MED & PEDS [address] [place], [place] [phone] Tal Parham MD [address] [place], [place] [phone] Diarrhea, unspecified type (Primary Dx) Social History Tobacco Use Types [...] 03/23/2025 3:48 PM Giovanna Starkey [place] * Thoughts that you would [...] Description 06/13/2025 3:00 PM EST Office Visit [facility] ADULT DENTAL [address] [place] [address] Eveline, Marcia [address] [place] [address] Scheduled Orders Name Type Priority Associated Diagnoses Orde r Schedule CDiff Gene PCR Lab Routine Diarrhea, unspecified type Expected: 03/23/2025 (Approximate), Expires: 03/23/2026 documented as of this encounter Visit Diagnoses Diagnosis Diarrhea, unspecified type- Primary documented in this encounter Additional Health Concerns Assessment Noted Time PHQ-9 Depression Total Score: 7 03/23/20 25 3:48 PM EST documented as of this encounter Care Teams Bolt Maker Relationship Specialty Start Date End Date Tal Parham MD [address] [place] [address] [place] [address] PCP - General Internal Medicine 02/15/14 documented as of this encounter
--- OUTSIDE RECORDS SUMMARY | 2025-03-23 18:37 | XMS_ITS | Encounter Summary ---
Author Organization [employer] Address [address] [place] [address] 7 [place] [address] Care Team Providers Care Shading Painter Name Role Phone Tal Parham MD Primary Care Provider [phone] Reason for Visit * Reason Comments Med Refill Encounter Details Date Type Department Care Team ([facility] Contact Info) Description 07/19/2022 Refill [facility] [address] [place] [address] Tal Parham MD [address] [place], [place] [phone] Essential hypertension (Primary Dx) Social History Tobacco [...] Upcoming Encounters Date Type Department Care Team ([facility] Contact Info) Description 06/13/2025 3:00 PM EST Office Visit [facility] ADULT DENTAL [address] [place] [address] Marcia Mosquera [address] [place] [address] documented as of this encounter Visit Diagnoses Diagnosis Essential hypertension- Primary Unspecified essential hypertension documented in this encounter Care Teams Shading Painter Relationship Specialty Start Date End Date Tal Parham MD [address] [place] [phone] PCP - General Internal Medicine 02/15/14 documented as of this encounter
== END 2025-03-23 16:16 | disposition home or self-care (01) ==
LOC: HO.CHCLDS 16:15
PROVIDERS: Visit Provider Internal Medicine
DX: R19.7 Diarrhea, unspecified (principal)
CPT/HCPCS: 36415; 80048; 83735; 84443

== ENCOUNTER 2025-03-27 13:29 | Outpatient (REF) | payer MEDICARE, SELFPAY ==
--- OUTSIDE RECORDS SUMMARY | 2025-03-23 15:30 | XMS_ITS | Encounter Summary ---
Author Organization [employer] Address [address] [place] [address] 7 [place] [address] Care Team Providers Care Saas Architect Name Role Phone Tal Parham MD Primary Care Provider [phone] Reason for Referral * Consultation (Routine) - Pending Review Specialty Diagnoses / Procedures Referred By Contjamey t Referred To Contact Behavioral Health Diagnoses Recurrent major depressive disorder, in partial remission (CMS/HCC) Procedures Referral to Behavioral Health Tal Parham MD [address] [place] [address] Phone: tel: fax: Referral ID Status Reason Start Date Expiration Date Visits Requested Visits Authorized [id number] Pending Review Specialty Services Required 03/23/2025 09/21/2026 1 1 Reason for Visit * Reason Comments Abdominal Pain Encounter Details Date Type Department Care Team ([facility] Contact Info) Description 03/23/2025 3:30 PM EST Office Visit [facility] CHC MED & PEDS [address] [place] [address] Tal Parham MD [address] [place] [address] Diarrhea, unspecified type (Primary Dx); Recurrent major depressive disorder, in partial remission (CMS/HCC) Social History Tobacco Use Types Packs/Day Years Used Date Smoking Tobacco: Never Passive Smoke Exposure: Never Smokeless Tobacco: Never Alcohol Use Standard Drinks/Week Comments Never 0 (1 standard drink = 0.6 oz pur e alcohol) Depression Answer Date Recorded Patient Health Questionnaire-9 Score 7 03/23/2025 Patient Health Questionnaire-9 Score 7 03/23/2025 Last PHQ-9: Questionnaire Data Not on file 1 05/23/2024 Housing Stability Answer Date Recorded What is your housing situation today? I have haile simpson 07/20/[address] you li ve. Do you have problems with any of the following? None of the above 07/20/2024 Food Insecurity Answer Date Recorded Within the past 12 months, y ou worried that your food would run out before you got money to buy more: Sometimes True 2024 Within the past 12 months,th e food you bought just didn't last and you didn't have enough money to get more: Often true 03/23/2025 Transportation Answer Date Recorded In the past 12 months, has l ack of transportation kept you from medical appts, meetings, work or from getting things needed for daily living? No 07/20/2024 Utilities Answer Date Recorded In the past 12 months, has t he electric, gas, oil or water company threatened to shut off services in your home? No 07/20/2024 Depression Answer Date Recorded Patient Health Questionnaire-2 Score 3 03/23/2025 Internet Access Answer Date Recorded Internet Access Q1 Yes 07/20/2024 Internet Access Q2 Not on file 07/20/2024 Comments No Sex and Gender Information Value Date Recorded Sex Assigned at Female 03/17/2022 10:20 AM EDT Legal Sex Female 10:20 AM EDT Gender Identity Female 03/17/2022 10:20 AM EDT Sexual Orientation Straight 03/17/2022 10 :20 AM EDT documented as of this encounter Last Filed Vital Signs Vital Sign Reading Time Taken Comments Blood Pressure 162/82 03/23/2025 3:30 PM EST Pulse 72 03/23/2025 3:30 PM EST Temperature 36.8 C (98.2 F) 03/23/2025 3:30 PM EST Respiratory Rate 19 03/23/2025 3:30 PM EST Oxygen Saturation 98% 03/23/2025 3:30 PM EST Inhaled Oxygen Concentration - - Weight 56.7 kg (125 lb) 03/23/2025 3:30 PM EST Height 153 cm (5' 0.25 ) 03/23/2025 3:30 PM EST Body Mass Index 24.21 03/23/2025 3:30 PM EST documented in this encounter Functional Status * Over the past 2 weeks, how often have you been bothered by any of the following problems? Question Answer Date of Assessment Author Patient Health Questionnaire-2 Score 3 10/2024 3:48 PM [place] Starkey [place] * Little interest or pleasure in doing things Answer Date of Assessment Author Several days 03/23/2025 3:48 PM Ray Starkey [place] * Feeling down, depressed, or hopeless Answer Date of Assessment Author More than half the days 03/23/2025 3:48 PM EST Florida Gamble [place] * Trouble falling or staying asleep, or sleeping too much Answer Date of Assessment Author Several days 03/23/2025 3:48 PM Ray Starkey MA * Feeling tired or having little energy Answer Date of Assessment Author Not at all 03/23/2025 3:48 PM Ray Starkey MA * Poor appetite or overeating Answer Date of Assessment Author Several days 03/23/2025 3:48 PM Giovanna Starkey MA * Feeling bad about yourself - or that you are a failure or have let yourself or your family down Answer Date of Assessment Author Not at all 03/23/2025 3:48 PM Ray Starkey MA * Trouble concentrating on things, such as reading the newspaper or watching television Answer Date of Assessment Author Several days 03/23/2025 3:48 PM Ray Starkey MA * Moving or speaking so slowly that other people could have noticed? Or the opposite - being so fidgety or restless that you have been moving around a lot more than usual. Answer Date of Assessment Author Several days 03/23/2025 3:48 PM Ray Starkey MA * Thoughts that you would be better off or hurting yourself in some way Answer Date of Assessment Author Not at all 03/23/2025 3:48 PM Ray Starkey MA * Patient Health Questionnaire-9 Score Answer Date of Assessment Author 7 03/23/2025 3:48 PM Ray Starkey MA * How difficult have these problems made it for you to do your work, take care of things at home, or get along with other people? Answer Date of Assessment Author Somewhat difficult 03/23/2025 3:48 PM Florida Starkey MA documented as of this encounter Progress Notes * Tal Parham MD - 03/23/2025 3:30 PM EST SUBJECTIVE Merly San is a 74 y.o. female who presents for Abdominal Pain. Merly San, 74-year-old female - Soft stools, urgency to use bathroom 3-4 times daily, onset prior to visit - Abdominal discomfort, pain described as all over - Denies diarrhea - Denies cancer - Lena feverish yesterday and today, but no fever - Reports swollen eyes Abdominal Pain Problem List[1] Allergies[2] Medications Ordered Prior to Encounter[3] Review of Systems Gastrointestinal: Positive for abdominal pain. OBJECTIVE Vitals: 03/23/25 1530 BP: (!) 162/82 BP Location: Left arm Patient Position: Sitting BP Cuff Size: Adult Pulse: 72 Resp: 19 Temp: 98.2 ??F (36.8 ??C) TempSrc: Oral SpO2: 98% Weight: 125 lb (56.7 kg) Height: 5' 0.25 (1.53 m) Physical Exam Constitutional: General: She is not in acute distress. Appearance: Normal appearance. She is not ill-appearing, toxic-appearing or diaphoretic. Cardiovascular: Rate and Rhythm: Normal rate. Pulmonary: Effort: Pulmonary effort is normal. Abdominal: Palpations: Abdomen is soft. Neurological: General: No focal deficit present. Mental Status: She is alert. Psychiatric: Mood and Affect: Mood normal. Assessment/Plan Assessment/Plan Diagnoses and all orders for this visit: Diarrhea, unspecified type - TSH W/Reflex to FT4; Future - Basic Metabolic Panel; Future - Magnesium; Future - Stool - Gastrointestinal panel; Future Recurrent major depressive disorder, in partial remission (CMS/HCC) - Referral to Behavioral Health; Future Altered bowel movements with abdominal discomfort: - Soft stools with increased frequency and abdominal discomfort. Infectious etiology (bacterial or parasitic) considered. - Ordered blood tests and stool studies to evaluate for bacterial or parasitic infection. Recommended hydration with fluids and electrolytes to replace losses from increased stool frequency. This note was drafted using Ambient (AI) technology. 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 Do not crush, chew, or split. 30 tablet 0 alendronate (Fosamax) 70 MG tablet TAKE 1 TABLET BY MOUTH WEEKLY WITH 8 OZ OF PLAIN WATER 30 MINUTES BEFORE FIRST FOOD, DRINK OR MEDS. STAY UPRIGHT FOR 30 MINS 12 tablet 3 Aspirin Low Dose 81 MG EC tablet TAKE ONE TABLET BY MOUTH EVERY DAY 90 tablet 3 atorvastatin (Lipitor) 40 MG tablet TAKE 1 TABLET BY MOUTH IN THE MORNING 100 tablet 2 latanoprost (Xalatan) 0.005 % ophthalmic solution sertraline (Zoloft) 100 MG tablet TAKE ONE TABLET BY MOUTH EVERY DAY 30 tablet 5 sertraline (Zoloft) 100 MG tablet TAKE 1 TABLET BY MOUTH IN THE MORNING 30 tablet 11 timolol (Timoptic) 0.5 % ophthalmic solution INSTILL 1 DROP IN BOTH EYES ONCE DAILY IN THE MORNING No current facility-administered medications on file prior to visit. documented in this encounter Plan of Treatment Upcoming Encounters Date Type Department Care Team (Late st Contact Info) Description 06/13/2025 3:00 PM EST Office Visit [facility] ADULT DENTAL [address] [place] [address] EvelineLuis MiguelMarcia [address] [place] [address] Scheduled Orders Name Type Priority Associated Diagnoses Orde r Schedule Stool - Gastrointestinal panel Microbiology Routine Diarrhea, unspecified type Expected: 03/23/2025 (Approximate), Expires: 03/23/2026 documented as of this encounter Procedures Procedure Name Priority Date/Time Associated Diagnosis Comments TSH W/REFLEX TO FT4 Routine 03/23/2025 4 :16 PM EST Diarrhea, unspecified type MAGNESIUM Routine 03/23/2025 4:16 PM EST Diarrhea, unspecified type BASIC METABOLIC PANEL Routine 03/23/2025 4:16 PM EST Diarrhea, unspecified type documented in this encounter Results * Magnesium (03/23/2025 4:16 PM EST) Magnesium 2.3 1.6 - 2.6 mg/dL [facility] Blood Venous blood specimen / Unknown 03/23/2025 4:16 PM EST 03/23/2025 5:31 PM EST us Tal Parham MD LAB BLOOD ORDERABLES Final Result [facility] [address] [place] [address] [phone] * (ABNORMAL) Basic Metabolic Panel (03/23/2025 4:16 PM EST) Sodium 143 135 - 145 mmol/L [facility] Potassium 4.3 3.3 - 5.1 mmol/L [facility] Chloride 106 96 - 108 mmol/L [facility] Carbon Dioxide 25 22 - 29 mmol/L [facility] Anion Gap 16 12 - 20 [facility] Urea Nitrogen (BUN) 17(H) 9 - 16 mg/dL [facility] Creatinine, Serum 0.46(L) 0.5 - 1.4 mg/dL [facility] Estimated Glomerular Filt Rate >60 [facility] Comment:Chronic Kidney Disea se: Estimated GFR < 60 mL/min/[id number] Kidney Disease: Estimated GFR < 15 mL/min/1.73m2 Glucose 119(H) 60 - 115 mg/dL [facility] Calcium 10.0 8.4 - 10.2 mg/dL [facility] Blood Venous blood specimen / Unknown 03/23/2025 4:16 PM EST 03/23/2025 5:31 PM EST us Tal Parham MD LAB BLOOD ORDERABLES Final Result Performing Organization Address [facility] Co de Phone Number [facility] [address] [place] [address] [phone] * TSH W/Reflex to FT4 (03/23/2025 4:16 PM EST) TSH reflex Free T4 2.91 0.32 - 4.0 uIU/mL [facility] Blood Venous blood specimen / Unknown 03/23/2025 4:16 PM EST 03/23/2025 5:31 PM EST us Tal Parham MD LAB BLOOD ORDERABLES Final Result Performing Organization Address [facility] de Phone Number [facility] [address] [place] [address] [phone] documented in this encounter Visit Diagnoses Diagnosis Diarrhea, unspecified type- Primary Recurrent major depressive disorder, in partial remission (CMS/HCC) documented in this encounter Additional Health Concerns Assessment Noted Time PHQ-9 Depression Total Score: 7 03/23/20 25 3:48 PM EST documented as of this encounter Care Teams Saas Architect Relationship Specialty Start Date End Date Tal Parham MD [address] [place] [phone] PCP - General Internal Medicine 02/15/14 documented as of this encounter
--- OUTSIDE RECORDS SUMMARY | 2025-03-27 15:34 | XMS_ITS | Encounter Summary ---
Author Organization [employer] Address 75 [facility] 7t [place] [address] Care Team Providers Care Trackmobile Operator Name Role Phone Tal Parham MD Primary Care Provider [phone] Encounter Details Date Type Department Care Team ([facility] Contact Info) Description 03/24/2025 Results Follow-Up [facility] CHC MED & PEDS [address] [place], [place] [phone] Tal Parham MD [address] [place] [address] TSH W/Reflex to FT4, Basic Metabolic Panel, Magnesium Social History Tobacco Use Types Packs/Day Years [...] Description 06/13/2025 3:00 PM EST Office Visit [facility] ADULT DENTAL [address] [place] [address] Eveline, Marcia [address] [place] [address] documented as of this encounter Visit Diagnoses Not on filedocumented in this encounter Additional Health Concerns Assessment Noted Time PHQ-9 Depression Total Score: 7 03/23/20 25 3:48 PM EST documented as of this encounter Care Teams Trackmobile Operator Relationship Specialty Start Date End Date Tal Parham MD [address] [place] [address] PCP - General Internal Medicine 02/15/14 documented as of this encounter
--- OUTSIDE RECORDS SUMMARY | 2025-03-27 15:34 | XMS_ITS | Encounter Summary ---
Author Organization [employer] Address 75 [facility] 7t [place] [address] Care Team Providers Care Tutor Name Role Phone Tal Parham MD Primary Care Provider [phone] Encounter Details Date Type Department Care Team ([facility] Contact Info) Description 07/13/2023 Orders Only [facility] CHC MED & PEDS [address] [place], [place] [phone] Tal Parham MD [address] [place], [place] [phone] Social History Tobacco Use Types Packs/Day Years [...] Description 06/13/2025 3:00 PM EST Office Visit [facility] ADULT DENTAL [address] [place] [address] Eveline, Marcia [address] [place] [address] documented as of this encounter Visit Diagnoses Not on filedocumented in this encounter Additional Health Concerns Assessment Noted Time PHQ-9 Depression Total Score: 11 024 2:56 PM EST documented as of this encounter Care Teams Tutor Relationship Specialty Start Date End Date Tal Parham MD [address] [place] [address] PCP - General Internal Medicine 02/15/14 documented as of this encounter
--- OUTSIDE RECORDS SUMMARY | 2025-03-27 15:34 | XMS_ITS | Encounter Summary ---
Author Organization [employer] Address [address] [facility] 7 [place] [address] Care Team Providers Care Hub Borer Name Role Phone Tal Parham MD Primary Care Provider [phone] Reason for Visit * Reason Comments Med Refill Encounter Details Date Type Department Care Team ([facility] Contact Info) Description 07/24/[address] [facility] CHC MED & PEDS [address] [place], [place] [phone] Tal Parham MD [address] [place] [address] Social History Tobacco Use Types Packs/Day Years [...] PM EST Office Visit [facility] ADULT DENTAL [address] [place] [address] Eveline, Marcia [address] [place] [address] documented as of this encounter Visit Diagnoses Not on filedocumented in this encounter Additional Health Concerns Assessment Noted Time PHQ-9 Depression Total Score: 11 024 2:56 PM EST documented as of this encounter Care Teams Hub Borer Relationship Specialty Start Date End Date Tal Parham MD [address] [place] [address] PCP - General Internal Medicine 02/15/14 documented as of this encounter
--- OUTSIDE RECORDS SUMMARY | 2025-03-27 15:34 | XMS_ITS | Encounter Summary ---
Author Organization [employer] Address [address] [place] [address] 7 [place] [address] Care Team Providers Care Carrier Washer Name Role Phone Tal Parham MD Primary Care Provider [phone]- [phone] Reason for Visit * Reason Comments Med Refill Encounter Details Date Type Department Care Team ([facility] Contact Info) Description 07/19/2022 Refill [facility] MEDICINE [address] [place] [address] Tal Parham MD [address] [place], [place] [phone] Essential hypertension (Primary Dx) Social History Tobacco [...] Upcoming Encounters Date Type Department Care Team ([facility] Contact Info) Description 06/13/2025 3:00 PM EST Office Visit [facility] ADULT DENTAL [address] [place] [address] Marcia Mosquera [address] [place] [address] documented as of this encounter Visit Diagnoses Diagnosis Essential hypertension- Primary Unspecified essential hypertension documented in this encounter Care Teams Carrier Washer Relationship Specialty Start Date End Date Tal Parham MD [address] [place] [address] PCP - General Internal Medicine 02/15/14 documented as of this encounter
--- OUTSIDE RECORDS SUMMARY | 2025-03-27 15:34 | XMS_ITS | Encounter Summary ---
Author Organization [employer] Address [address] [place] [address] 7 [place] [address] Care Team Providers Care Disc Recordist Name Role Phone Tal Parham MD Primary Care Provider [phone]- [phone] Encounter Details Date Type Department Care Team (Latest Contact Info) Description 11/26/2018 Abstract [facility] CONVERSIONS Dental, Provider, DDS Social History [...] Description 06/13/2025 3:00 PM EST Office Visit [facility] ADULT DENTAL [address] [place] [address] Eveline, Marcia [address] [place] [address] documented as of this encounter Visit Diagnoses Not on filedocumented in this encounter Care Teams Disc Recordist Relationship Specialty Start Date End Date Tal Parham MD [address] [place] [address] PCP - General Internal Medicine 02/15/14 documented as of this encounter
--- OUTSIDE RECORDS SUMMARY | 2025-03-27 15:34 | XMS_ITS | Encounter Summary ---
Author Organization [employer] Address [address] [place] [address] 7 [place] [address] Care Team Providers Care Pipe Stripper Name Role Phone Tal Parham MD Primary Care Provider [phone]- [phone] Encounter Details Date Type Department Care Team (Latest Contact Info) Description 03/05/2021 Abstract [facility] CONVERSIONS Dental, [...] [facility] ADULT DENTAL [address] [place] [address] Eveline, Marcia [address] [place] [address] documented as of this encounter Visit Diagnoses Not on filedocumented in this encounter Care Teams Pipe Stripper Relationship Specialty Start Date End Date Tal Parham MD [address] [place] [address] PCP - General Internal Medicine 02/15/14 documented as of this encounter
--- OUTSIDE RECORDS SUMMARY | 2025-03-27 15:34 | XMS_ITS | Encounter Summary ---
Author Organization [employer] Address [address] [facility] 7t [place] [address] Care Team Providers Care Senior Support Analyst Name Role Phone Tal Parham MD Primary Care Provider [phone] Encounter Details Date Type Department Care Team ([facility] Contact Info) Description 05/21/2023 Orders Only [facility] CHC MED & PEDS [address] [place], [place] [phone] Tal Parham MD [address] [place], [place] [phone] Social History Tobacco Use Types Packs/Day Years [...] 3:00 PM EST Office Visit [facility] ADULT DENTAL [address] [place], [place] [phone] Eveline, Marcia [address] [place] [address] documented as of this encounter Visit Diagnoses Not on filedocumented in this encounter Care Teams Senior Support Analyst Relationship Specialty Start Date End Date Tal Parham MD [address] [place] [address] PCP - General Internal Medicine 02/15/14 documented as of this encounter
--- OUTSIDE RECORDS SUMMARY | 2025-03-27 15:34 | XMS_ITS | Encounter Summary ---
Author Organization [employer] Address [address] [facility] 7t [place] [address] Care Team Providers Care Component Assembler Supervisor Name Role Phone Tal Parham MD Primary Care Provider [phone] Reason for Visit * Reason Comments Med Refill Encounter Details Date Type Department Care Team ([facility] st Contact Info) Description 03/17/2025 Refill [facility] MEDICINE [address] [place] [address] Tal Parham MD [address] [place] [address] Social History Tobacco Use Types Packs/Day Years [...] 3:00 PM EST Office Visit [facility] ADULT DENTAL [address] [place] [address] Eveline, Marcia [address] [place] [address] documented as of this encounter Visit Diagnoses Not on filedocumented in this encounter Additional Health Concerns Assessment Noted Time PHQ-9 Depression Total Score: 18 024 2:41 PM EST documented as of this encounter Care Teams Component Assembler Supervisor Relationship Specialty Start Date End Date Tal Parham MD [address] [place] [address] PCP - General Internal Medicine 02/15/14 documented as of this encounter
--- OUTSIDE RECORDS SUMMARY | 2025-03-27 15:34 | XMS_ITS | Clinical Summary ---
Author Organization [employer] Address [address] [place] [address] 7t [place] [address] Care Team Providers Care Supervisor Telephone Clerks Name Role Phone Tal Parham MD Primary Care Provider [phone]- [phone] Allergies No known active allergies Medications sertraline [...] Encounters Date Type Department Care Team Description 03/24/2025 Results Follow-Up [facility] MED & PEDS [address] [place] [address] Tal Parham MD TSH W/Reflex to FT4, Basic Metabolic Panel, Magnesium 03/23/2025 3:30 PM EST Office Visit [facility] MED & PEDS [address] [place] [address] Tal Parham MD Diarrhea, unspecified type (Primary Dx); Recurrent major depressive disorder, in partial remission (CMS/HCC) 03/23/2025 Orders Only [facility] MED & PEDS [address] [place] [address] Tal Parham MD Diarrhea, unspecified type (Primary Dx) 03/23/2025 Travel 03/17/2025 Refill [facility] MEDICINE [address] [place] [address] Tal Parham MD 03/16/2025 Telephone [facility] MEDICINE [address] [place] [address] Tal Parham MD Nurse Triage 01/25/2025 2:45 PM EDT Office Visit [facility] ADULT DENTAL [address] [place] [address] StatonHectorVyas , Alyse, DDS Missing teeth, acquired (Primary Dx) 01/23/2025 1:30 PM EDT Office Visit [facility] ADULT DENTAL [address] [place] [address] StatonHectorVyas , Alyse, DDS Missing teeth, acquired (Primary Dx) 12/29/2024 2:30 PM EDT Office Visit [facility] ADULT DENTAL [address] [place] [address] Alyse Cantor, DERICK Full coverage crown needed for tooth at [...] Description 06/13/2025 3:00 PM EST Office Visit [facility] ADULT DENTAL [address] [place] [address] Eveline, Marcia [address] [place] [address] Health Maintenance Due Date Last Done Comments [...] W/Reflex to FT4 (03/23/2025 4:16 PM EST) Pathologist [facility] TSH reflex Free T4 2.91 0.32 - 4.0 uIU/mL [facility] Blood Venous blood specimen / Unknown 03/23/2025 4:16 PM EST 03/23/2025 5:31 PM EST Tal Parham MD LAB BLOOD ORDERABLES Final Result Performing Organization Address City/[facility]/ZIP Co de Phone Number [facility] [address] [place] [phone] * Magnesium (03/23/2025 4:16 PM EST) [facility] Magnesium 2.3 1.6 - 2.6 mg/dL [facility] Blood Venous blood specimen / Unknown 03/23/2025 4:16 PM EST 03/23/2025 5:31 PM EST us Tal Parham MD LAB BLOOD ORDERABLES Final Result Performing Organization Address [facility] de Phone Number [facility] [address] [place] [phone] * (ABNORMAL) Basic Metabolic Panel (03/23/2025 4:16 PM EST) [facility] Sodium 143 135 - 145 mmol/L [facility] Potassium 4.3 3.3 - 5.1 mmol/L [facility] Chloride 106 96 - 108 mmol/L [facility] Carbon Dioxide 25 22 - 29 mmol/L [facility] Anion Gap 16 12 - 20 [facility] Urea Nitrogen (BUN) 17(H) 9 - 16 mg/dL [facility] Creatinine, Serum 0.46(L) 0.5 - 1.4 mg/dL [facility] Estimated Glomerular Filt Rate >60 [facility] Comment:Chronic Kidney Disea se: Estimated GFR < 60 mL/min/1.59o5Nwoajw Kidney Disease: Estimated GFR < 15 mL/min/1.73m2 Glucose 119(H) 60 - 115 mg/dL [facility] Calcium 10.0 8.4 - 10.2 mg/dL [facility] Blood Venous blood specimen / Unknown 03/23/2025 4:16 PM EST 03/23/2025 5:31 PM EST Tal Parham MD LAB BLOOD ORDERABLES Final Result [facility] [address] [place] [address] [phone] * Cologuard?? colon cancer screening (08/31/2023 3:30 PM EDT) Cologuard Result Negative Negative 09/09/19 7:26 PM EDT [facility] (CLIA #:[id number]) Comment: NEGATIVE TEST RESULT. A negative Cologuard [...] Henson et al, N Engl J Med 2014;370(14):1964-9593) The normal value (reference range) for this assay is negative. COLOGUARD RE-SCREENING RECOMMENDATION: Periodic colorectal cancer screening is an important part of preventive healthcare for asymptomatic individuals at average risk for colorectal cancer. Following a negative Cologuard result, the [place] Cancer Society and U.S. Multi-Society Task Force screening guidelines recommend a Cologuard re-screening interval of 3 years. References: [place] [employer] Guideline for Colorectal Cancer Screening: https://www.cancer.org/cancer/ohogl-zdfdbu-oubllo/klgvmhixz-hwaqdqxrm-idjgywe/ac s-rec ommendations.html.; Damien DK, Shaun CR, Patricia GarciaK, Colorectal Cancer Screening: Recommendations for Physicians and Patients from the U.S. Multi-Society Task Force on Colorectal Cancer Screening , Am J Gastroenterology 2017; 112:4811-8617. TEST DESCRIPTION: Composite algorithmic analysis of stool [...] (Soham Pedro al, N Engl J Med 2014;370(14):0859-9702.) Cologuard may produce a false negative or false positive result (no colorectal cancer or precancerous polyp present at colonoscopy follow up). A negative Cologuard test result does not guarantee the absence of CRC or advanced adenoma (pre-cancer). The current Cologuard screening interval is every 3 years. ([place] [employer] Society and U.S. Multi-Society Task Force). Cologuard performance data in a 10,000 patient pivotal study using colonoscopy as the reference method can be accessed at the following location: www.[employer]results. Additional description of the Cologuard test process, warnings and precautions can be found at www.Prowlrd.com. Stool specimen (specimen) Rectal contents / Unknown 08/31/2023 3:30 PM EDT 09/03/2023 10:57 AM EDT us Tal Parham MD LAB MOLECULAR DIAGNOSTICS O RDERABLES Final Result [facility] (CLIA #:[id number]) [place] [address], * HEPATITIS C AB W/REFL TO HCV [...] a test for HCV RNA (test code 20864) is suggested. For additional information please refer to http://education.link bird/faq/DDV25q4 (This link is being provided for informational/ educational purposes only.) 09/05/2021 9:01 AM EDT us Tal Parham MD HISTORICAL/NON ORDERABLE LA BS Final Result Performing Organization Address [facility] Co de Phone Number [facility] [address] from Last 3 Months or Most Recently Relevant to Health Maintenance [place] [address] [place] [address] [facility] MEDICARE ADVANTAGE HMO DENTAL [facility] DENTAL - HSN FULL (MEDICAID) [place] [id number] Care Teams Supervisor Telephone Clerks Relationship Specialty Start Date End Date Tal Parham MD [address] [place] [phone] PCP - General Internal Medicine 02/15/14
--- OUTSIDE RECORDS SUMMARY | 2025-03-27 15:34 | XMS_ITS | Encounter Summary ---
Author Organization [employer] Address [address] [facility] 7t [place] [address] Care Team Providers Care Scouts Name Role Phone Tal Parham MD Primary Care Provider [phone] Encounter Details Date Type Department Care Team ([facility] Contact Info) Description 03/23/2025 Orders Only [facility] CHC MED & PEDS [address] [place], [place] [phone] Tal Parham MD [address] [place] [address] Diarrhea, unspecified type (Primary Dx) Social History [...] Description 06/13/2025 3:00 PM EST Office Visit [facility] ADULT DENTAL [address] [place] [address] Eveline, Marcia [address] [place] [address] Scheduled Orders Name Type Priority Associated Diagnoses Orde r Schedule CDiff Gene PCR Lab Routine Diarrhea, unspecified type Expected: 03/23/2025 (Approximate), Expires: 03/23/2026 documented as of this encounter Visit Diagnoses Diagnosis Diarrhea, unspecified type- Primary documented in this encounter Additional Health Concerns Assessment Noted Time PHQ-9 Depression Total Score: 7 03/23/20 25 3:48 PM EST documented as of this encounter Care Teams Scouts Relationship Specialty Start Date End Date Tal Parham MD [address] [place] [address] [place] [address] PCP - General Internal Medicine 02/15/14 documented as of this encounter
--- OUTSIDE RECORDS SUMMARY | 2025-03-27 15:34 | XMS_ITS | Encounter Summary ---
Author Organization [employer] Address [address] [facility] 7t [place] [address] Care Team Providers Care Steelscope Operator Name Role Phone Tal Parham MD Primary Care Provider [phone] Encounter Details Date Type Department Care Team [...] 3:00 PM EST Office Visit [facility] ADULT DENTAL [address] [place] [address] Eveline, Marcia [address] [place] [address] documented as of this encounter Visit Diagnoses Not on filedocumented in this encounter Additional Health Concerns Assessment Noted Time PHQ-9 Depression Total Score: 7 03/23/20 25 3:48 PM EST documented as of this encounter Care Teams Steelscope Operator Relationship Specialty Start Date End Date Tal Parham MD [address] [place] [phone] PCP - General Internal Medicine 02/15/14 documented as of this encounter
[2025-03-28 08:13] LABS: E. coli EAEC Not Detected (Not Detect.); E. coli EPEC Not Detected (Not Detect.); E. coli ETEC Not Detected (Not Detect.); E. coli STEC Not Detected (Not Detect.); Shigella sp./EIEC Not Detected (Not Detect.)
== END 2025-03-27 13:30 | disposition home or self-care (01) ==
LOC: HO.HHCL 13:29
PROVIDERS: PCP Internal Medicine; Visit Provider Internal Medicine
DX: R19.7 Diarrhea, unspecified (principal)
CPT/HCPCS: 87507